=== PATIENT | male | born 1960 | race Caucasian/White ===

== ENCOUNTER 2018-07-27 12:53 | Observation (INO) ==
--- NOTE | 2018-07-27 13:57 | Emergency Department Note ---
Disposition Clinical Impression: Ascites Qualifiers: Ascites type: other type Qualified Code(s): R18.8 - Other ascites Disposition: Admitted As Inpatient Condition: Good Referrals: Mariano Quintero MD [Primary Care Provider] - Forms: Work/School Release, ED Satisfaction Letter Time of Disposition: 15:08 General Adult HPI - General Chief complaint: ED Abdominal Pain Stated complaint: abd swelling Time Seen by Provider: 07/27/18 13:29 Nursing Notes Reviewed: Yes Vital Signs Reviewed: Yes - History of Present Illness HPI Narrative: 57 year old male presents for belly swelling. Patient states he's gained 5 pounds overnight and 10 pounds in a week. Patient had same symptoms in March and needed a paracentesis. Patient has a history of nonalcoholic cirrhosis. Denies fluid retention elsewhere. Reports shortness of breath with exertion and decreased stamina. Denies fever/chills, leg swelling, chest pain, abdominal pain, hematuria, cough, hemoptysis, bloody stools, diarrhea/constipation. Reports medical history of nonalcoholic cirrhosis, kidney disease, A-fib, CHF. Pain Scale: 2 - Related Data Home Medications Medication Instructions Recorded Confirmed Allopurinol [Zyloprim 300 MG] 600 mg PO DAILY 05/28/16 04/09/18 Buspirone HCl [Buspar] 15 mg PO BID 05/28/16 04/09/18 Ferrous Sulfate 325 mg PO DAILY 05/28/16 04/09/18 Metoprolol Tartrate [Lopressor] 50 mg PO BID 05/28/16 04/09/18 Paroxetine HCl [Paroxetine] 40 mg PO DAILY 05/28/16 04/09/18 Potassium Chloride [K-Tab ER] 20 meq PO BID 05/28/16 04/09/18 Simvastatin [Zocor] 40 mg PO QAM 05/28/16 04/09/18 Magnesium Oxide [Mag-Ox] 400 mg PO DAILY 08/29/16 04/09/18 Cholecalciferol (Vitamin D3) 2,000 unit PO DAILY 07/14/17 04/09/18 [Vitamin D3] Warfarin [Coumadin] 2 mg PO DAILY 04/09/18 04/09/18 Previous Rx's Medication Instructions Recorded Digoxin [Lanoxin] 0.125 mg PO DAILY #30 tab 05/06/17 Isosorbide MONOnitrate (24 HR) 30 mg PO DAILY #30 tab.er.24h 05/06/17 [Imdur] Bumetanide [Bumex] 3 mg PO BIDDIURETIC #60 tablet 04/14/18 Allergies Allergy/AdvReac Type Severity Reaction Status Date / Time No Known Allergies Allergy Verified 07/27/18 13:08 Constitutional: Denies: fever, chills Eyes: Denies: eye pain, eye discharge ENT ED: Denies: ear pain, throat pain Cardiovascular: Denies: chest pain, palpitations Respiratory: Denies: cough, dyspnea Gastrointestinal: Denies: abdominal pain, nausea Genitourinary: Denies: urgency, dysuria Musculoskeletal: Denies: back pain, neck pain Integumentary: Denies: rash, abrasion Neurological: Denies: headache, weakness Past Medical History - Past Medical History Medical history: Reports: diabetes, hypertension, renal disease Surgical history: Reports: non-contributory, other Psychiatric history: Reports: anxiety, depression - Social History Smoking Status: Never smoker Smokeless Tobacco Status: No Alcohol use: Reports: none Drug use: Reports: none Physical Exam - General General appearance: alert, in no apparent distress - Head Head exam: atraumatic, normocephalic - Eye Eye exam: Present: PERRL, EOMI - ENT ENT exam: normal oropharynx, mucous membranes dry - Neck Neck exam: Present: normal inspection - Chest Chest inspection: Present: normal inspection, symmetric chest wall rise - Respiratory Respiratory exam: Present: normal lung sounds bilaterally. Absent: respiratory distress - Cardiovascular Cardiovascular exam: Present: regular rate, normal rhythm - Abdominal Exam Abdominal exam: Present: Non-Tender, distention, normal bowel sounds, ascites. Absent: soft (firm and distended ), guarding, rebound, rigidity - Extremities Exam Extremities exam: Present: pedal edema (mild pitting edema 1+ bilaterally ). Absent: tenderness, joint swelling - Neurological Exam Neurological exam: Present: alert, oriented X3 - Psychiatric Psychiatric exam: Present: normal affect, normal mood - Skin Skin exam: Present: warm, dry, intact, normal color Course Course Narrative: 57 year old male with history of cirrhosis, kidney disease, Afib, and CHF presents for abdominal swelling for 1 week. Patient had same symptoms 4 months ago and needed paracentesis. Patient is alert and oriented and hemodynamically stable. On exam, abdomen is large and distended. There are normal bowel sounds and no tenderness to palpation. There is mild 1+ pitting edema of lower extremities. Heart is irregularly irregular. Lungs are clear with good airflow. Will check labwork and consult IR for paracentesis. - Reevaluation(s) Reevaluation #1: CBC and BMP are unremarkable. Albumin is normal. INR is therapeutic. Point of care bedside ultrasound shows ascites. IR nurse states that since INR is 2.4, cannot do paracentesis. States INR has to be below 2.0. Paracentesis will be scheduled for tomorrow. Time: 14:57 Vital Signs Temperature 98.4 F 07/27/18 13:06 Pulse Rate 50 07/27/18 13:06 Respiratory Rate 18 07/27/18 13:06 Blood Pressure 132/81 07/27/18 13:06 O2 Sat by Pulse Oximetry 96 07/27/18 13:06 Temperature 98.4 F 07/27/18 13:06 Pulse Rate 49 07/27/18 13:38 Respiratory Rate 18 07/27/18 13:38 Blood Pressure 129/84 07/27/18 13:38 O2 Sat by Pulse Oximetry 98 07/27/18 13:38 Oxygen Delivery Oxygen Delivery Room Air Medical Decision Making - Lab Data Lab results reviewed: Yes I reviewed the patient's lab results. - EKG Data EKG #1 EKG attestation: Yes I reviewed and interpreted this EKG. EKG results narrative: EKG 07/27/18 14:03. Atrial fibrillation. Heart rate 49. No ST segment elevation or depression. No significant change from prior EKG 04/09/18.
--- NOTE | 2018-07-27 14:16 | Emergency Department Note ---
Disposition Clinical Impression: Ascites Qualifiers: Ascites type: other type Qualified Code(s): R18.8 - Other ascites Disposition: Home, Self-Care Condition: Good Instructions: Ascites (ED) Reasons to Return/Additional Instructions: Please followup with PCP in next 3-5 days. Please return to ED if severely worsening symptoms such as shortness of breath, increased weight gain, or vomiting blood. Referrals: Mariano Quintero MD [Primary Care Provider] - Forms: ED Satisfaction Letter, Work/School Release General Adult HPI - General Chief complaint: ED Abdominal Pain Stated complaint: abd swelling Time Seen by Provider: 07/27/18 13:29 Nursing Notes Reviewed: Yes Vital Signs Reviewed: Yes - History of Present Illness Pain Scale: 2 - Related Data Home Medications Medication Instructions Recorded Confirmed Allopurinol [Zyloprim 300 MG] 600 mg PO DAILY 05/28/16 04/09/18 Buspirone HCl [Buspar] 15 mg PO BID 05/28/16 04/09/18 Ferrous Sulfate 325 mg PO DAILY 05/28/16 04/09/18 Metoprolol Tartrate [Lopressor] 50 mg PO BID 05/28/16 04/09/18 Paroxetine HCl [Paroxetine] 40 mg PO DAILY 05/28/16 04/09/18 Potassium Chloride [K-Tab ER] 20 meq PO BID 05/28/16 04/09/18 Simvastatin [Zocor] 40 mg PO QAM 05/28/16 04/09/18 Magnesium Oxide [Mag-Ox] 400 mg PO DAILY 08/29/16 04/09/18 Cholecalciferol (Vitamin D3) 2,000 unit PO DAILY 07/14/17 04/09/18 [Vitamin D3] Warfarin [Coumadin] 2 mg PO DAILY 04/09/18 04/09/18 Previous Rx's Medication Instructions Recorded Digoxin [Lanoxin] 0.125 mg PO DAILY #30 tab 05/06/17 Isosorbide MONOnitrate (24 HR) 30 mg PO DAILY #30 tab.er.24h 05/06/17 [Imdur] Bumetanide [Bumex] 3 mg PO BIDDIURETIC #60 tablet 04/14/18 Allergies Allergy/AdvReac Type Severity Reaction Status Date / Time No Known Allergies Allergy Verified 07/27/18 13:08 Constitutional: Denies: fever, chills Eyes: Denies: eye pain, eye discharge ENT ED: Denies: ear pain, throat pain Cardiovascular: Denies: chest pain, palpitations Respiratory: Denies: cough, dyspnea Gastrointestinal: Denies: abdominal pain, nausea Genitourinary: Denies: urgency, dysuria Musculoskeletal: Denies: back pain, neck pain Integumentary: Denies: rash, abrasion Neurological: Denies: headache, weakness Past Medical History - Past Medical History Medical history: Reports: diabetes, hypertension, renal disease Surgical history: Reports: non-contributory, other Psychiatric history: Reports: anxiety, depression - Social History Smoking Status: Never smoker Smokeless Tobacco Status: No Alcohol use: Reports: none Drug use: Reports: none Physical Exam - General General appearance: alert, in no apparent distress Course Vital Signs Temperature 98.4 F 07/27/18 13:06 Pulse Rate 50 07/27/18 13:06 Respiratory Rate 18 07/27/18 13:06 Blood Pressure 132/81 07/27/18 13:06 O2 Sat by Pulse Oximetry 96 07/27/18 13:06 Temperature 98.4 F 07/27/18 13:06 Pulse Rate 49 07/27/18 13:38 Respiratory Rate 18 07/27/18 13:38 Blood Pressure 129/84 07/27/18 13:38 O2 Sat by Pulse Oximetry 98 07/27/18 13:38 Oxygen Delivery Oxygen Delivery Room Air Medical Decision Making - MDM Narrative Medical decision making narrative: 1506 hrs. INR is 2.4. Iris is a high speed below 2 below before they can notes were in a bring him into the hospital except to the hospitalists and then once that gets down they can go ahead and tap and patient's in agreement with plan. - Lab Data Result diagrams: 07/27/18 14:00 07/27/18 14:00 Lab Results 07/27/18 07/27/18 07/27/18 Range/Units 14:00 14:00 14:00 WBC 8.0 (4.3-11.1) K/mcL RBC 5.04 (4.19-5.50) M/mcL Hgb 12.3 L (12.9-16.9) g/dL Hct 40.8 (37.5-50.1) % MCV 81.0 L (83.0-100.0) fL MCH 24.4 L (28.0-33.3) pg MCHC 30.1 L (31.6-35.5) g/dL RDW 19.2 H (11.5-14.5) % Plt Count 162 (140-400) K/mcL MPV 10.8 (9.4-12.4) fL Immature Gran % 0.4 (0-4) % Seg Neutrophils % 73.2 % Lymphocytes % 16.1 % Monocytes % 8.9 % Eosinophils % 1.2 % Basophils % 0.2 % Neutrophils # 5.9 (1.6-8.9) K/mcL Lymphocytes # 1.3 (0.6-4.6) K/mcL Monocytes # 0.7 (0.0-1.3) K/mcL Eosinophils # 0.1 (0.0-0.6) K/mcL Basophils # 0.0 (0.0-0.2) K/mcL Immature Plt Fraction 4.7 (1.1-6.1) % PT 27.4 H (9.4-12.1) Seconds INR 2.4 Sodium 141 (136-145) mEq/L Potassium 4.0 (3.5-5.1) mEq/L Chloride 102 (98-107) mEq/L Carbon Dioxide 31 H (23-29) mEq/L BUN 28 H (6-20) mg/dL Creatinine 1.49 H (0.70-1.30) mg/dL Est GFR ( Amer) 59 L (> 60) Est GFR (Non-Af Amer) 49 L (> 60) BUN/Creatinine Ratio 19 (6-26) Glucose 117 H (70-105) mg/dL Calculated Osmolality 299 (280-300) Calcium 9.4 (8.6-10.3) mg/dL Albumin (3.5-5.7) g/dL 07/27/18 Range/Units 14:00 WBC (4.3-11.1) K/mcL RBC (4.19-5.50) M/mcL Hgb (12.9-16.9) g/dL Hct (37.5-50.1) % MCV (83.0-100.0) fL MCH (28.0-33.3) pg MCHC (31.6-35.5) g/dL RDW (11.5-14.5) % Plt Count (140-400) K/mcL MPV (9.4-12.4) fL Immature Gran % (0-4) % Seg Neutrophils % % Lymphocytes % % Monocytes % % Eosinophils % % Basophils % % Neutrophils # (1.6-8.9) K/mcL Lymphocytes # (0.6-4.6) K/mcL Monocytes # (0.0-1.3) K/mcL Eosinophils # (0.0-0.6) K/mcL Basophils # (0.0-0.2) K/mcL Immature Plt Fraction (1.1-6.1) % PT (9.4-12.1) Seconds INR Sodium (136-145) mEq/L Potassium (3.5-5.1) mEq/L Chloride (98-107) mEq/L Carbon Dioxide (23-29) mEq/L BUN (6-20) mg/dL Creatinine (0.70-1.30) mg/dL Est GFR ( Amer) (> 60) Est GFR (Non-Af Amer) (> 60) BUN/Creatinine Ratio (6-26) Glucose (70-105) mg/dL Calculated Osmolality (280-300) Calcium (8.6-10.3) mg/dL Albumin 4.0 (3.5-5.7) g/dL Attestation Statement - Attestation Attestation: This documentation is done with the assistance of Dragon dictation. Despite efforts made to ensure accuracy, there may be inaccuracies in interpreter or spelling and typographical errors. I examined this patient and my medical decision-making was reviewed with the Resident Physician. I agree with the documented findings, disposition and treatment plan as described except to the extent set forth below. Patient seen and evaluated on arrival by Dr. Barnett and myself, I agree with her evaluation and management plan, I supervised the care the patient's stay. Patient presents today with the need for paracentesis. History of cirrhosis. So his abdomen is getting larger pain 5-10 pounds her last 2 days. No fevers or chills no difficulty urinating no new symptoms. He has had a paracentesis done here. We went ahead and talked to IR they said go ahead and get a CBC and INR in him and Alyssa performed procedure. He is in agreement with plan if all goes well I think he can be discharged home after this. He is in agreement.
[2018-07-27 14:32] LABS: Hemoglobin 12.3 g/dL (12.9-16.9); Immature Granulocytes % 0.4 % (0-4)
[2018-07-27 14:33] LABS: Basophils % 0.2 %; Eosinophils # 0.1 K/mcL (0.0-0.6); Eosinophils % 1.2 %; Hematocrit 40.8 % (37.5-50.1); Immature Platelets 4.7 % (1.1-6.1); Lymphocytes # 1.3 K/mcL (0.6-4.6); Lymphocytes % 16.1 %; Mean Corpuscular HGB Conc 30.1 g/dL (31.6-35.5); Mean Corpuscular Hemoglobin 24.4 pg (28.0-33.3); Mean Platelet Volume 10.8 fL (9.4-12.4); Monocytes # 0.7 K/mcL (0.0-1.3); Monocytes % 8.9 %; Neutrophils # 5.9 K/mcL (1.6-8.9); Platelet Count 162 K/mcL (140-400); Red Blood Count 5.04 M/mcL (4.19-5.50); Red Cell Distribution Width 19.2 % (11.5-14.5); Segmented Neutrophils % 73.2 %
[2018-07-27 14:34] LABS: INR 2.4; Prothrombin Time 27.4 Seconds (9.4-12.1)
[2018-07-27 14:50] LABS: Calcium 9.4 mg/dL (8.6-10.3)
[2018-07-27] MEDS ORDERED: Naloxone 0.4 MG/ML INJ IVP PRN (15:16)
--- NOTE | 2018-07-27 15:29 | Internal Med History&Physical ---
Date of Encounter: 07/27/18 Time of Encounter: 15:24 Internal Medicine - H&P: HPI Chief complaint: abdomianl distension Admitted From: Home Plans for Post Hospital Care: Home History of present illness: Mr. Amanda is a 57 year old male with history of [place], atrial fibrillation on Coumadin, CKD 3, diabetes and heart failure preserved ejection fraction presented to the emergency department with worsening abdominal distention. As per patient his abdomen has been more distended for the past 1 week. He reports a 10 pound weight gain in this past week. He has history of nonalcoholic cirrhosis which causes him to have ascites. He was last seen in May 2018 and underwent paracentesis where 5.2 L of fluid was removed. He cannot recall alleviating or aggravating factors however he does report that he has compliant with his medications and fluid restriction. He denies fever, chills, confusion, loss of consciousness, syncope, chest pain, shortness of breath, palpitations, abdominal pain, difficulty urinating, lower extremity edema, prolonged immobilization or calf tenderness. While in the ED he was found to have INR of 2.4, large ascites, IR was consulted who recommended admission to hold the Coumadin until INR is less than 2 for paracentesis in the morning. Past Med Surg Social Fam HX - Past Medical History Medical history: diabetes, hypertension, renal disease Additional medical history: SLEEP APNEA Psychiatric history: anxiety, depression - Past Surgical History Surgical History: non-contributory, other Additional surgical history: Heart cath 2014 - Social History Smoking Status: Never smoker Smokeless Tobacco Status: No Alcohol use: none Drug use: none - Family History Sister Family Member Ethnicity: Non- Living Status: Hx Family Cardiac Disorders: Yes Hx Family Respiratory Disorders: No Hx Family Cancer: No Hx Family GI Disorders: No Hx Family Endocrine Disorder: No Hx Family Neuromuscular Disorders: No Hx Family Neurologic Disorders: No Hx Family HEENT Disorders: No Hx Family Autoimmune Disorders: No Mother Family Member Ethnicity: Non- Living Status: Still Living Hx Family Cancer: Yes (breast cancer) Father Family Member Ethnicity: Non- Living Status: Hx Family Cardiac Disorders: Yes Hx Family Respiratory Disorders: No Hx Family Cancer: No Hx Family GI Disorders: No Hx Family Endocrine Disorder: Yes (DM) Hx Family Neuromuscular Disorders: No Hx Family Neurologic Disorders: Yes (Alzheimers) Hx Family HEENT Disorders: No Hx Family Autoimmune Disorders: No Internal Medicine - H&P: Meds Allopurinol [Zyloprim 300 MG] 600 mg PO DAILY 05/28/16 [History] Buspirone HCl [Buspar] 15 mg PO BID 05/28/16 [History] Metoprolol Tartrate [Lopressor] 50 mg PO BID 05/28/16 [History] Potassium Chloride [K-Tab ER] 20 meq PO BID 05/28/16 [History] Simvastatin [Zocor] 40 mg PO QAM 05/28/16 [History] Magnesium Oxide [Mag-Ox] 400 mg PO DAILY 08/29/16 [History] Digoxin [Lanoxin] 0.125 mg PO DAILY #30 tab 05/06/17 [Rx] Isosorbide MONOnitrate (24 HR) [Imdur] 30 mg PO DAILY #30 tab.er.24h 05/06/17 [Rx] Cholecalciferol (Vitamin D3) [Vitamin D3] 2,000 unit PO DAILY 07/14/17 [History] Warfarin [Coumadin] 2 mg PO DAILY 04/09/18 [History] Bumetanide [Bumex] 3 mg PO BID 07/27/18 [History] Ferrous Sulfate [Iron] 325 mg PO DAILY 07/27/18 [History] PARoxetine HCl [Paroxetine HCl] 40 mg PO DAILY 07/27/18 [History] Warfarin Sodium 4 mg PO MOTUTHFR 07/27/18 [History] Allergy/AdvReac Type Severity Reaction Status Date / Time No Known Allergies Allergy Verified 07/27/18 13:08 All Systems PM: review of systems was performed and is negative for pertinent findings except as documented above in the HPI. - Constitutional Vitals: Temp Pulse Resp BP Pulse Ox 98.4 F 54 16 129/91 97 07/27/18 13:06 07/27/18 15:16 07/27/18 15:16 07/27/18 15:16 07/27/18 15:16 Exam: General: Patient is alert, oriented, no acute distress, obese Head: atraumatic, normocephalic, Eye: normal appearance, PERRL, no scleral icterus, no conjunctival injection ENT: mucous membranes moist, normal external ear exam Neck: normal inspection, trachea midline, full ROM, no carotid bruits Chest: normal inspection, symmetric chest rise Respiratory: Good respiratory effort. Bilateral breath sounds are clear without wheezing, crackles, or rhonchi. Cardiovascular: Irregular s1 and s2 No clicks, rubs, gallops, or murmors. Abdomen: Bowel sounds present normoactive x-4 quadrants. Abdomen is soft, distended, positive for fluid shift and ascites, no rebound tenderness musculoskeletal: Spontaneously moving all extremities. no edema, no calf tenderness Skin: warm, dry, intact. Dark discoloration of lower extremities below the knee which is chronic Neuro: Alert and oriented x4. Sensation light touch intact. Cranial nerves 2- 12 is intact. Not aphasic, gait is steady, rapid hand movements intact, [id number] intact, Psych: Patient's affect is normal Internal Med - H&P Results - Labs CBC & Chem 7: 07/27/18 14:00 07/27/18 14:00 Labs: Short CBC 07/27/18 Range/Units 14:00 WBC 8.0 (4.3-11.1) K/mcL Hgb 12.3 L (12.9-16.9) g/dL Hct 40.8 (37.5-50.1) % Plt Count 162 (140-400) K/mcL Neutrophils # 5.9 (1.6-8.9) K/mcL BMP 07/27/18 14:00 Sodium 141 Potassium 4.0 Chloride 102 Carbon Dioxide 31 H BUN 28 H Creatinine 1.49 H Glucose 117 H Calcium 9.4 Liver Function 07/27/18 Range/Units 14:00 Albumin 4.0 (3.5-5.7) g/dL - EKG Data -: EKG Interpreted by Myself (Afib with slow ventricular respnse, low voltage, old anterior infarct ) - EKG Data Prior EKG available for review: yes When compared to previous EKG: there is no significant change - Assessment and plan (1) Ascites Current Visit: Yes Status: Acute Assessment and plan: Secondary to nonalcoholic cirrhosis Has no tenderness, rebound, leukocytosis or feverSBP unlikely IR was consulted for paracentesis in the a.m. Patient is in agreement to hold Coumadin tonight as IR desires the INR to be less than 2- patient understands risks and benefits of holding anticoagulation and he agrees Follow INR in the morning Follow ascites fluid analysis LFTs stat utox continue diuretics Qualifiers: Ascites type: other type Qualified Code(s): R18.8 - Other ascites (2) Atrial fibrillation with slow ventricular response Current Visit: Yes Status: Acute Assessment and plan: on digoxin - next dose in AM - consider holding if he remains bradycardic will hold BB as the HR is <50 coumadin on hold for IR guided paracentesis in the AM ( patient in agreement) cardiac monitoring atropine at bedside for symptomatic HR <35 (3) Chronic kidney disease, stage 3 Current Visit: No Status: Acute Assessment and plan: Chronic CKD 3 Creatinine at baseline 1.49 We will continue home medications Follow BMP in the morning (4) Anemia Current Visit: No Status: Acute Assessment and plan: Chronic anemia Hemoglobin at baseline Follow CBC in the morning Qualifiers: Anemia type: unspecified type Qualified Code(s): D64.9 - Anemia, unspecified (5) Chronic diastolic (congestive) heart failure Current Visit: No Status: Chronic Assessment and plan: We will continue home medications if not contraindicated Currently not an exacerbation (6) Obesity (BMI 30-39.9) Current Visit: No Status: Chronic Assessment and plan: Was counseled Consider nutrition consult BMI 37.4 (7) DVT prophylaxis Current Visit: No Status: Acute Assessment and plan: On Coumadin with therapeutic INR - Time Spent With Patient Total time spent is greater than 50% in coordination of care (as documented) at patient's floor/unit and/or counseling patient:
[2018-07-27 16:15] LABS: Albumin 4.1 g/dL (3.5-5.7); Albumin/Globulin Ratio 1.9 (1.1-2.2); Bilirubin,Direct 0.5 mg/dL (0.0-0.2); Bilirubin,Indirect 1.1 mg/dL (0.0-1.2); Bilirubin,Total 1.6 mg/dL (0.3-1.0); Globulin 2.2 g/dL (2.4-3.5); Total Protein 6.3 g/dL (6.4-8.9)
[2018-07-27] MEDS ORDERED: *HR* Atropine Sulfate 1 MG/10 ML SYRINGE IVP PRN (16:18)
[2018-07-27] MEDS: Bumetanide 1 MG TABLET PO SCH (18:50)
[2018-07-27 21:40] LABS: Amphetamine Screen,Urine Negative ng/mL (Cutoff=1000); Barbiturate Screen,Urine Negative ng/mL (Cutoff=200); Benzodiazepines Screen,Urine Negative ng/mL (Cutoff=200); Cannabinoid Screen,Urine Negative ng/mL (Cutoff = 50); Cocaine Screen,Urine Negative ng/mL (Cutoff= 300); Opiate Screen,Urine Negative ng/mL (Cutoff=300); Phencyclidine Screen,Urine Negative ng/mL (Cutoff=25)
[2018-07-27 21:42] LABS: Bilirubin,Urine Negative (Negative); Blood,Urine Negative (Negative); Clarity,Urine Clear (Clear); Color,Urine Yellow (Yellow); Glucose,Urine (UA) Normal (Normal); Ketones,Urine Negative (Negative); Leukocyte Esterase,Urine Negative (Negative); Nitrite,Urine Negative (Negative); PH,Urine 6.5 pH Units (5.0-8.0); Protein,Urine Negative (Neg-Trace); Specific Gravity,Urine 1.012 (1.010-1.025); Urobilinogen,Urine Normal (Normal)
[2018-07-28 06:41] LABS: Basophils % 0.4 %; Eosinophils # 0.1 K/mcL (0.0-0.6); Hematocrit 38.8 % (37.5-50.1); Hemoglobin 11.7 g/dL (12.9-16.9); Immature Granulocytes % 0.4 % (0-4); Lymphocytes % 21.2 %; Mean Corpuscular HGB Conc 30.2 g/dL (31.6-35.5); Mean Corpuscular Hemoglobin 23.9 pg (28.0-33.3); Mean Corpuscular Volume 79.3 fL (83.0-100.0); Monocytes # 0.7 K/mcL (0.0-1.3); Monocytes % 9.5 %; Neutrophils # 4.9 K/mcL (1.6-8.9); Platelet Count 166 K/mcL (140-400); Red Blood Count 4.89 M/mcL (4.19-5.50); Segmented Neutrophils % 67.5 %
[2018-07-28 06:43] LABS: Lymphocytes # 1.6 K/mcL (0.6-4.6)
[2018-07-28 06:45] LABS: INR 2.1; Prothrombin Time 24.2 Seconds (9.4-12.1)
[2018-07-28 06:46] LABS: Estimated Average Glucose 157 mg/dl; Hemoglobin A1C 7.1 %
[2018-07-28 06:57] LABS: BUN/Creatinine Ratio 20 (6-26); Blood Urea Nitrogen 26 mg/dL (6-20); Carbon Dioxide 27 mEq/L (23-29); Chloride 103 mEq/L (98-107); Chol/HDL Ratio 3.8 (0-4.9); Cholesterol 76 mg/dL (< 200); Glucose 97 mg/dL (70-105); HDL Cholesterol 20 mg/dL (40-59); LDL Cholesterol,Calculated 33 mg/dL (0-99); Osmolality,Calculated 295 (280-300); Potassium 3.5 mEq/L (3.5-5.1); Sodium 140 mEq/L (136-145); Triglycerides 115 mg/dL (< 150); eGFR For Non-African Americans 57 (> 60)
[2018-07-28] MEDS: Bumetanide 1 MG TABLET PO SCH (07:20)
[2018-07-28] MEDS: Isosorbide MONOnitrate (24 HR) 30 MG TAB.ER.24H PO SCH (07:21)
[2018-07-28] MEDS: Magnesium Oxide 400 MG TABLET PO SCH (07:21)
[2018-07-28] MEDS: Cholecalciferol (D-3) 1,000 UNIT TABLET PO SCH (07:21)
--- NOTE | 2018-07-28 08:28 | Internal Med Progress Note ---
Hospitalist Progress Note - Encounter Date of Encounter: 07/28/18 Time of Encounter: 08:22 - Subjective Interval History: Patient with history of Coffman follows up in [place] had paracenteses about 5 Lremoved march also history of atrial fibrillation on Coumadin, CK D, diabetes, history of diastolic heart failure, hypertension and obstructive sleep apnea patient was admitted with abdominal pain and abdominal distention for about a week with some exertional shortness of breath evaluation shows large ascites patient is scheduled for paracentesis but inr was high at 2.4 Coumadin is held this morning is 2.1 awaiting IR to decide about proceeding with the paracentesis today patient heart rate is in the 40s atrial fibrillation held digoxin is being held probably discontinue it for now - Exam Vitals: Temp Pulse Resp BP Pulse Ox 97.5 F L 49 11 107/62 97 07/28/18 05:05 07/28/18 05:05 07/28/18 05:05 07/28/18 05:05 07/28/18 05:05 Exam: General: Patient is alert, oriented, no acute distress, obese Head: atraumatic, normocephalic, Eye: normal appearance, PERRL, no scleral icterus, no conjunctival injection ENT: mucous membranes moist, normal external ear exam Neck: normal inspection, trachea midline, full ROM, no carotid bruits Chest: normal inspection, symmetric chest rise Respiratory: Good respiratory effort. Bilateral breath sounds are clear without wheezing, crackles, or rhonchi. Cardiovascular: Irregular s1 and s2 No clicks, rubs, gallops, or murmors. Abdomen: Bowel sounds present normoactive x-4 quadrants. Abdomen is soft, distended, positive for fluid shift and ascites, no rebound tenderness musculoskeletal: Spontaneously moving all extremities. no edema, no calf tenderness Skin: warm, dry, intact. Dark discoloration of lower extremities below the knee which is chronic Neuro: Alert and oriented x4. Sensation light touch intact. Cranial nerves 2- 12 is intact. Not aphasic, gait is steady, rapid hand movements intact, [id number] intact, Psych: Patient's affect is normal - Assessment and Plan (1) Obesity Current Visit: No Status: Chronic Assessment and Plan: Chronic due to excess caloric intake (2) HTN (hypertension) Current Visit: No Status: Chronic Assessment and Plan: Chronic and well controlled (3) Diabetes 1.5, managed as type 2 Current Visit: No Status: Chronic Assessment and Plan: Continue sliding scale (4) Chronic kidney disease, stage 3 Current Visit: No Status: Chronic Assessment and Plan: Chronic creatinine has improved from 1.4-1.3 (5) Ascites Current Visit: Yes Status: Acute Assessment and Plan: Patient with history of Coffman now presenting with a large ascites has been consul t taped for paracentesis (6) Atrial fibrillation with slow ventricular response Current Visit: Yes Status: Acute Assessment and Plan: Active fibrillation with slow ventricular response or discontinue digoxin and check dig level and mildly dig toxic - Time Spent with Patient Total time spent is greater than 50% in coordination of care (as documented) at patient's floor/unit and/or counseling patient: Internal Medicine: Result - Labs CBC & Chem 7: 07/28/18 06:11 07/28/18 06:11 Labs: Short CBC 07/27/18 07/28/18 Range/Units 14:00 06:11 WBC 8.0 7.3 (4.3-11.1) K/mcL Hgb 12.3 L 11.7 L (12.9-16.9) g/dL Hct 40.8 38.8 (37.5-50.1) % Plt Count 162 166 (140-400) K/mcL Neutrophils # 5.9 4.9 (1.6-8.9) K/mcL BMP 07/27/18 07/28/18 14:00 06:11 Sodium 141 140 Potassium 4.0 3.5 Chloride 102 103 Carbon Dioxide 31 H 27 BUN 28 H 26 H Creatinine 1.49 H 1.30 Glucose 117 H 97 Calcium 9.4 9.0 Liver Function 07/27/18 07/27/18 Range/Units 14:00 15:42 Total Bilirubin 1.6 H (0.3-1.0) mg/dL Direct Bilirubin 0.5 H (0.0-0.2) mg/dL AST 19 (13-39) Units/L ALT 13 (7-52) Units/L Alkaline Phosphatase 230 H (34-104) Units/L Albumin 4.0 4.1 (3.5-5.7) g/dL Urine 07/27/18 Range/Units 21:20 Urine Color Yellow (Yellow) Urine Clarity Clear (Clear) Urine pH 6.5 (5.0-8.0) pH Units Ur Specific [place] 1.012 (1.010-1.025) Urine Protein Negative (Neg-Trace) mg/dL Urine Glucose (UA) Normal (Normal) mg/dL - ABG Interpretation ABG results: PT/INR, D-dimer PT 24.2 Seconds (9.4-12.1) H 07/28/18 06:11 Consult Discharge Plan - Plan Referrals: Mariano Quintero MD [Primary Care Provider] - ___ (1) Obesity Qualifiers: Obesity type: unspecified obesity type Qualified Code(s): E66.01 - Morbid (severe) obesity due to excess calories (2) HTN (hypertension) Qualifiers: Hypertension type: essential hypertension Qualified Code(s): I10 - Essential (primary) hypertension (5) Ascites Qualifiers: Ascites type: other type Qualified Code(s): R18.8 - Other ascites
[2018-07-28] MEDS ORDERED: *HR* Digoxin 0.125 MG TABLET PO SCH (09:00)
--- NOTE | 2018-07-28 13:49 | Cardiology Consult Note ---
Addendum entered and electronically signed by Ady Vazquez DO 07/28/18 14:48: I have personally performed a face to face evaluation on this patient. I have reviewed and agree with the care plan. History and Exam by me shows: Patient independently seen and examined. Describes a 5 pound weight gain over the last 24 hours. Reports worsening abdominal distention. Mild lower extremity edema noted, breath sounds are clear. Diagnosed with cirrhosis earlier this year, following with hepatology at [facility]. Scheduled for endoscopy in August. Cardiac issues include chronic diastolic heart failure, chronic atrial fibrillation. Impressions: 1. Clinically, awake and appears largely secondary to increasing abdominal distention and likely abdominal ascites. 2. Cirrhosis. 3. Chronic diastolic heart failure. Mild lower extremity edema noted on e xamination. Breast sounds otherwise clear. 4. Chronic atrial fibrillation, heart rate 50s. Recommendations: 1. Recommend GI evaluation. Consider Aldactone/loop diuretic combination. Paracentesis planned per reports. 2. Hemoglobin stable. No known prior seizures related to cirrhosis. Endoscopy scheduled for August. If issues develop, may need to reconsider anticoagulation in the future. This was discussed with the patient. 3. Continue to monitor heart rate. Okay to hold digoxin. Will likely resume low-dose beta collin tomorrow. Her heart rate for now. 4. CHF precautions. Thanks, Ady Vazquez DO, [facility] Original Note: Date of Encounter: 07/28/18 Time of Encounter: 13:46 Assessment and Plan (1) Acute diastolic (congestive) heart failure Current Visit: Yes Status: Acute Hx of chronic diastolic CHF. BNP 658. Presented with worsening dyspnea, 10lb weight gain in the past week, abdominal distention and mild BLE edema. Obtain CXR. TTE 01/2018 EF 60-65%. Appears symptoms are mostly secondary to his ascites. Currently on IV Bumex 3mg BID. Recommend considering Lasix and aldactone as alternative diuretics and GI consult given recurrent ascites warranting paracentesis. Recommend strict I/Os, Na and fluid restriction. Large amount of ascites--plan is for paracentesis when INR <2.0. Will discuss and review with Dr. Vazquez. (2) Ascites Current Visit: Yes Status: Acute Hx of JOLLEY and ascites. Large amount of ascites currently. Plan for paracentesis when INR <2. Management per primary team. Recommend consider GI consult. Qualifiers: Ascites type: other type Qualified Code(s): R18.8 - Other ascites (3) Atrial fibrillation with slow ventricular response Current Visit: Yes Status: Acute Known hx of A-Fib anticoagulated on Coumadin. INR 2.1. Held for paracentesis. On Digoxin 125mcg daily and Lopressor 50mg BID. Both currently on hold due to HR 40s-50s at bedside. Pt denies dizziness, lightheadedness or syncope. States his HR is typically 50s. Continue telemetry. Discussion w patient/family: The assessment and plan as outlined above was discussed with the patient and/or family members who expressed understanding and agreement. All questions were ans wered. Thank you for involving us in the care of your patient. Please call with any questions. I will discuss all the above with Dr. Vazquez and make changes as necessary. History of Present Illness Consult date: 07/28/18 Consult reason: CHF Chief complaint: dyspnea, weight gain, abdominal distention History of present illness: Mr. Amanda is a 57 year old male with PMH of JOLLEY, A-Fib on Coumadin, CKD 3, DM and diastolic CHF that presented to the ED with worsening abdominal distention, 10 lb weight gain in 1 week, and dyspnea. Hx of nonalcoholic cirrhosis which causes him to have ascites. Underwent paracentesis 03/2018 where 5.2 L of fluid was removed. He cannot recall alleviating or aggravating factors however he does report that he has compliant with his medications and fluid restriction. In the the ED he was found to have INR of 2.4, large ascites, IR was consulted who recommended admission to hold the Coumadin until INR is less than 2 for paracentesis. INR 2.1 today. Cardiology consulted for CHF. HR 40s-50s, A-Fib on Digoxin which is currently on hold. Pt denies dizziness, lightheadedness or syncope. Prior CV testing: TTE 02/18/2018: LVEF 60-65%. RV was mildly dilated with normal function. Severe biatrial enlargement. No hemodynamically significant valvular disease. IVUS to be RVSP. No pericardial effusion. [facility] 07/22/2013: Left main normal. LAD mid and distal 30% stenosis. Circumflex mid 30% stenosis. RCA proximal and mid 20% stenosis. Past Med Surg Social Fam HX - Past Medical History Medical history: atrial fibrillation, CHF, coronary artery disease, diabetes, hypertension, myocardial infarction, renal disease Additional medical history: SLEEP APNEA Psychiatric history: anxiety, depression - Past Surgical History Surgical History: non-contributory, other Additional surgical history: Heart cath 2014 - Social History Smoking Status: Never smoker Smokeless Tobacco Status: No Alcohol use: none Drug use: none - Family History Sister Family Member Ethnicity: Non- Living Status: Hx Family Cardiac Disorders: Yes Hx Family Respiratory Disorders: No Hx Family Cancer: No Hx Family GI Disorders: No Hx Family Endocrine Disorder: No Hx Family Neuromuscular Disorders: No Hx Family Neurologic Disorders: No Hx Family HEENT Disorders: No Hx Family Autoimmune Disorders: No Mother Family Member Ethnicity: Non- Living Status: Still Living Hx Family Cancer: Yes (breast cancer) Father Family Member Ethnicity: Non- Living Status: Hx Family Cardiac Disorders: Yes Hx Family Respiratory Disorders: No Hx Family Cancer: No Hx Family GI Disorders: No Hx Family Endocrine Disorder: Yes (DM) Hx Family Neuromuscular Disorders: No Hx Family Neurologic Disorders: Yes (Alzheimers) Hx Family HEENT Disorders: No Hx Family Autoimmune Disorders: No Medications and Allergies Allopurinol [Zyloprim 300 MG] 600 mg PO DAILY 05/28/16 [History] Buspirone HCl [Buspar] 15 mg PO BID 05/28/16 [History] Metoprolol Tartrate [Lopressor] 50 mg PO BID 05/28/16 [History] Potassium Chloride [K-Tab ER] 20 meq PO BID 05/28/16 [History] Simvastatin [Zocor] 40 mg PO QAM 05/28/16 [History] Magnesium Oxide [Mag-Ox] 400 mg PO DAILY 08/29/16 [History] Digoxin [Lanoxin] 0.125 mg PO DAILY #30 tab 05/06/17 [Rx] Isosorbide MONOnitrate (24 HR) [Imdur] 30 mg PO DAILY #30 tab.er.24h 05/06/17 [Rx] Cholecalciferol (Vitamin D3) [Vitamin D3] 2,000 unit PO DAILY 07/14/17 [History] Warfarin [Coumadin] 2 mg PO SUWESA 04/09/18 [History] Bumetanide [Bumex] 3 mg PO BID 07/27/18 [History] Ferrous Sulfate [Iron] 325 mg PO DAILY 07/27/18 [History] PARoxetine HCl [Paroxetine HCl] 40 mg PO DAILY 07/27/18 [History] Warfarin Sodium 4 mg PO MOTUTHFR 07/27/18 [History] Allergy/AdvReac Type Severity Reaction Status Date / Time No Known Allergies Allergy Verified 07/27/18 13:08 All Systems Review: The remainder of the systems were reviewed and are negative - Constitutional Constitutional: weight gain - Cardiovascular Cardiovascular: as per HPI, dyspnea at rest, dyspnea on exertion, leg edema - Respiratory Respiratory: dyspnea Physical Examination Vital Signs, Last 4 Hours Temp Pulse Resp BP Pulse Ox 07/28/18 10:05 97.6 F 54 15 128/70 95 Vital Signs Temp Pulse Resp BP Pulse Ox 07/28/18 10:05 97.6 F 54 15 128/70 95 07/28/18 05:05 97.5 F L 49 11 107/62 97 07/27/18 19:18 97.8 F 55 11 126/85 07/27/18 17:14 61 22 130/86 99 07/27/18 16:20 54 18 112/79 96 07/27/18 15:16 54 16 129/91 97 07/27/18 14:30 42 16 123/70 98 Intake and Output 07/27/18 07/28/18 07/28/18 23:59 07:59 15:59 Intake Total 0 / 0 240 / 240 480 / 480 Output Total 0 / 0 Balance 0 / 0 240 / 240 480 / 480 Intake: Oral 0 / 0 240 / 240 480 / 480 Output: Urine 0 / 0 Other: Meal Breakfast Percent of Meal Consumed 50% # Voids 1 3 1 # Bowel Movements 1 General: Conversant, No Apparent Distress HEENT: Atraumatic, Normocephaly, Mucus Membranes Moist Neck: Normal carotid pulses Cardiac: Other (irregularly irregular ) Lungs: Normal Breath Sounds, No Wheeze, Rales, Rhonchi Neuro: Alert and responsive, No focal deficits noted Abdomen: Other (distended) Skin: No rashes noted on visualized skin Musculoskeletal: No Chest Wall Tenderness Extremities: Other (mild BLE edema) Results 07/28/18 06:11 07/28/18 06:11 Lab Results 07/27/18 07/27/18 07/27/18 14:00 14:00 14:00 WBC 8.0 Hgb 12.3 L Hct 40.8 Plt Count 162 INR 2.4 Sodium 141 Potassium 4.0 Chloride 102 Carbon Dioxide 31 H BUN 28 H Creatinine 1.49 H Glucose 117 H Calcium 9.4 Total Bilirubin AST ALT Alkaline Phosphatase B-Natriuretic Peptide 07/27/18 07/28/18 07/28/18 15:42 06:11 06:11 WBC 7.3 Hgb 11.7 L Hct 38.8 Plt Count 166 INR 2.1 Sodium Potassium Chloride Carbon Dioxide BUN Creatinine Glucose Calcium Total Bilirubin 1.6 H AST 19 ALT 13 Alkaline Phosphatase 230 H B-Natriuretic Peptide 07/28/18 07/28/18 06:11 06:11 WBC Hgb Hct Plt Count INR Sodium 140 Potassium 3.5 Chloride 103 Carbon Dioxide 27 BUN 26 H Creatinine 1.30 Glucose 97 Calcium 9.0 Total Bilirubin AST ALT Alkaline Phosphatase B-Natriuretic Peptide 658 H Short CBC 07/28/18 07/27/18 Range/Units 06:11 14:00 WBC 7.3 8.0 (4.3-11.1) K/mcL Hgb 11.7 L 12.3 L (12.9-16.9) g/dL Hct 38.8 40.8 (37.5-50.1) % Plt Count 166 162 (140-400) K/mcL Neutrophils # 4.9 5.9 (1.6-8.9) K/mcL BMP 07/28/18 07/27/18 Range/Units 06:11 14:00 Sodium 140 141 (136-145) mEq/L Potassium 3.5 4.0 (3.5-5.1) mEq/L Chloride 103 102 (98-107) mEq/L Carbon Dioxide 27 31 H (23-29) mEq/L BUN 26 H 28 H (6-20) mg/dL Creatinine 1.30 1.49 H (0.70-1.30) mg/dL Glucose 97 117 H (70-105) mg/dL Calcium 9.0 9.4 (8.6-10.3) mg/dL Liver Function 07/27/18 07/27/18 Range/Units 15:42 14:00 Total Bilirubin 1.6 H (0.3-1.0) mg/dL Direct Bilirubin 0.5 H (0.0-0.2) mg/dL AST 19 (13-39) Units/L ALT 13 (7-52) Units/L Alkaline Phosphatase 230 H (34-104) Units/L Albumin 4.1 4.0 (3.5-5.7) g/dL Urine 07/27/18 Range/Units 21:20 Urine Color Yellow (Yellow) Urine Clarity Clear (Clear) Urine pH 6.5 (5.0-8.0) pH Units Ur Specific [place] 1.012 (1.010-1.025) Urine Protein Negative (Neg-Trace) mg/dL Urine Glucose (UA) Normal (Normal) mg/dL Active Medications Allopurinol (Zyloprim) 600 mg PO DAILY [facility] Stop: 01/27/19 09:01 Last Admin: 07/28/18 07:22 Dose: 600 mg Atropine Sulfate (Atropine) 0.5 mg IVP ONCE PRN PRN Reason: Bradycardia Stop: 01/26/19 16:19 Bumetanide (Bumex) 3 mg IVP BIDDIURETIC [facility] Stop: 01/27/19 17:01 Buspirone HCl (Buspar) 15 mg PO BID [facility] Stop: 01/26/19 21:01 Last Admin: 07/28/18 07:20 Dose: 15 mg Ferrous Sulfate (Ferrous Sulfate) 325 mg PO DAILY [facility] Stop: 01/27/19 09:01 Last Admin: 07/28/18 07:21 Dose: 325 mg Isosorbide Mononitrate (Imdur) 30 mg PO DAILY [facility] Stop: 01/27/19 09:01 Last Admin: 07/28/18 07:21 Dose: 30 mg Magnesium Oxide (Mag-Ox) 400 mg PO DAILY [facility]; Protocol Stop: 01/27/19 09:01 Last Admin: 07/28/18 07:21 Dose: 400 mg Naloxone HCl (Narcan) 0.4 mg IVP Q2MIN PRN PRN Reason: SEE COMMENTS Stop: 01/26/19 15:17 Paroxetine HCl (Paxil) 40 mg PO DAILY [facility] Stop: 01/27/19 09:01 Last Admin: 07/28/18 07:21 Dose: 40 mg Simvastatin (Zocor) 40 mg PO QAM [facility]; Protocol Stop: 01/27/19 09:01 Last Admin: 07/28/18 07:21 Dose: 40 mg Vitamin D (Vitamin D) 1,000 unit PO DAILY [facility] Stop: 01/27/19 09:01 Last Admin: 07/28/18 07:21 Dose: 1,000 unit - Imaging and Cardiology Echo: report reviewed - EKG Interpretation EKG results cardiology: personally reviewed (A-Fib slow ventricular response rate 49), other (12 hr tele AVG HR 58, A-Fib) Consult Discharge Plan - Plan Referrals: Mariano Quintero MD [Primary Care Provider] -
--- NOTE | 2018-07-28 15:56 | IR Procedure Note ---
Date of procedure: 07/28/18 Consent Obtained: Verbal consent, Written consent Timeout: Correct patient and procedure verified, Correct site verified, Time out performed, Skin prep completed Local anesthetic: Lidocaine 1% Indications: ascites Procedure Performed: paracentesis Was there an office manager executive assistant present: No Site/Technique: abdomen Results/Findings: large ascites Estimated blood loss (cc): 0 Complications: None; Tolerated procedure well Post Procedure Treatment Plan: NA Specimen: 5.6 L straw color fluid
[2018-07-28 16:35] LABS: RBC,Peritoneal Fluid < 0.002 M/mcL
[2018-07-28] MEDS: Bumetanide 1 MG/4 ML VIAL IVP SCH (16:36)
--- NOTE | 2018-07-28 16:41 | Electrocardiograph Report ---
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
[2018-07-28 16:49] LABS: Total Protein,Peritoneal Fluid 3.4 g/dL (No Ref Range)
[2018-07-28 17:36] LABS: Appearance of Peritoneal Fl CLEAR (Clear)
[2018-07-29 04:51] LABS: BUN/Creatinine Ratio 20 (6-26); Blood Urea Nitrogen 24 mg/dL (6-20); Carbon Dioxide 30 mEq/L (23-29); Chloride 102 mEq/L (98-107); Glucose 96 mg/dL (70-105); Osmolality,Calculated 296 (280-300); Potassium 3.5 mEq/L (3.5-5.1); Sodium 141 mEq/L (136-145); eGFR For Non-African Americans > 60 (> 60)
--- NOTE | 2018-07-29 06:28 | Event Note ---
Date of Encounter: 07/29/18 Time of Encounter: 02:20 Nursing staff reported abnormal telemetry concerning for heart block. EKG was performed, with findings consistent for 2nd degree type 2 block. Patient denied any chest pain or discomfort. Plan for continuation of close telemetry and clinical monitoring.
[2018-07-29] MEDS: Cholecalciferol (D-3) 1,000 UNIT TABLET PO SCH (08:11)
[2018-07-29] MEDS: Isosorbide MONOnitrate (24 HR) 30 MG TAB.ER.24H PO SCH (08:11)
[2018-07-29] MEDS: Bumetanide 1 MG/4 ML VIAL IVP SCH (08:12)
[2018-07-29] MEDS: Magnesium Oxide 400 MG TABLET PO SCH (08:12)
--- NOTE | 2018-07-29 09:59 | Cardiology Progress Note ---
Date of Encounter: 07/29/18 Time of Encounter: 09:57 Assessment and Plan (1) Acute diastolic (congestive) heart failure Current Visit: Yes Status: Acute Hx of chronic diastolic CHF. BNP 658. Presented with worsening dyspnea, 10lb weight gain in the past week, abdominal distention and mild BLE edema. TTE 01/2018 EF 60-65%. Appears symptoms are mostly secondary to his cirrhosis/ascites. Currently on IV Bumex 3mg BID. Recommend GI evaluation. Consider Aldactone/loop diuretic combination. S/P paracentesis yesterday with 5.6L of fluid removed. Symptoms have improved. Recommend strict I/Os, Na and fluid restriction. Cardiology signing off. Reconsult PRN. Will coordinate outpt follow-up. (2) Ascites Current Visit: Yes Status: Acute Hx of JOLLEY and ascites. Large amount of ascites on admission, s/p paracentesis with 5.6L fluid removed. Management per primary team. Recommend consider GI consult. Qualifiers: Ascites type: other type Qualified Code(s): R18.8 - Other ascites (3) Atrial fibrillation with slow ventricular response Current Visit: Yes Status: Acute Known hx of A-Fib anticoagulated on Coumadin. INR 2.1. Home meds included Digoxin 125mcg daily and Lopressor 50mg BID. Both currently on hold due to bradycardia. Pt denies dizziness, lightheadedness or syncope. States his HR is typically 50s. HR has improved with holding AV kennedi blockers. 12 hr tele AVG HR 59, A-Fib. Lowest HR 40s nocturnally. Continue to hold. Event note states concern for heart block overnight. Pt is A-Fib. No heart block noted. Outpt follow-up. Discussion w patient/family: The assessment and plan as outlined above was discussed with the patient and/or family members who expressed understanding and agreement. All questions were an swered. Thank you for involving us in the care of your patient. Please call with any questions. I will discuss all the above with Dr. Vazquez and make changes as necessary. Subjective Principal diagnosis: CHF, bradycardia Interval history: S/P paracentesis yesterday with 5.6L fluid removed. Pt reports symptom improvement. 12 hr tele AVG HR 59, A-Fib. Event note with concern of heart block overnight. ECGs and telemetry reviewed. This pt is in A-Fib, no heard block noted. Lowest HR overnight 40s. Denies dizziness, lightheadedness or syncope. Objective Vital Signs, Last 4 Hours Temp Pulse Resp BP Pulse Ox 07/29/18 06:25 97.8 F 67 15 107/62 97 Vital Signs Temp Pulse Resp BP Pulse Ox 07/29/18 06:25 97.8 F 67 15 107/62 97 07/29/18 03:25 98.3 F 57 14 132/74 98 07/29/18 00:07 99.4 F 53 14 112/67 99 07/28/18 19:05 98.6 F 54 16 118/76 95 07/28/18 16:41 98.5 F 50 16 110/56 99 07/28/18 14:38 98.5 F 52 16 126/78 96 07/28/18 10:05 97.6 F 54 15 128/70 95 Intake and Output 07/28/18 07/29/18 07/29/18 23:59 07:59 15:59 Intake Total 800 / 800 0 / 0 360 / 360 Output Total 650 / 650 0 / 0 700 / 700 Balance 150 / 150 0 / 0 -340 / -340 Intake: Oral 800 / 800 0 / 0 360 / 360 Output: Urine 650 / 650 0 / 0 700 / 700 Other: Meal Dinner Breakfast Percent of Meal Consumed 100% 80% Stool Size Moderate Stool Consistency soft Stool Color Brown # Voids 1 # Bowel Movements 0 0 General: Conversant, No Apparent Distress HEENT: Atraumatic, Normocephaly, Mucus Membranes Moist Neck: Normal carotid pulses Cardiac: Other (irregularly irregular) Lungs: Normal Breath Sounds, No Wheeze, Rales, Rhonchi Neuro: Alert and responsive, No focal deficits noted Abdomen: Soft, Non-Tender Skin: No rashes noted on visualized skin Musculoskeletal: No Chest Wall Tenderness Extremities: No Clubbing, No Cyanosis, No Edema, Normal Pulses Results 07/28/18 06:11 07/29/18 04:08 Lab Results 07/29/18 04:08 Sodium 141 Potassium 3.5 Chloride 102 Carbon Dioxide 30 H BUN 24 H Creatinine 1.22 Glucose 96 Calcium 9.0 BMP 07/29/18 Range/Units 04:08 Sodium 141 (136-145) mEq/L Potassium 3.5 (3.5-5.1) mEq/L Chloride 102 (98-107) mEq/L Carbon Dioxide 30 H (23-29) mEq/L BUN 24 H (6-20) mg/dL Creatinine 1.22 (0.70-1.30) mg/dL Glucose 96 (70-105) mg/dL Calcium 9.0 (8.6-10.3) mg/dL Impressions Paracentesis Ultrasound 07/28/18 13:53 IMPRESSION: Successful ultrasound guided paracentesis. D/ / Naren Banks / Naren Banks Interpreting Provider: Naren Banks Active Medications Allopurinol (Zyloprim) 600 mg PO DAILY [facility] Stop: 01/27/19 09:01 Last Admin: 07/29/18 08:11 Dose: 600 mg Atropine Sulfate (Atropine) 0.5 mg IVP ONCE PRN PRN Reason: Bradycardia Stop: 01/26/19 16:19 Bumetanide (Bumex) 3 mg IVP BIDDIURETIC [facility] Stop: 01/27/19 17:01 Last Admin: 07/29/18 08:12 Dose: 3 mg Buspirone HCl (Buspar) 15 mg PO BID [facility] Stop: 01/26/19 21:01 Last Admin: 07/29/18 08:11 Dose: 15 mg Ferrous Sulfate (Ferrous Sulfate) 325 mg PO DAILY [facility] Stop: 01/27/19 09:01 Last Admin: 07/29/18 08:11 Dose: 325 mg Isosorbide Mononitrate (Imdur) 30 mg PO DAILY [facility] Stop: 01/27/19 09:01 Last Admin: 07/29/18 08:11 Dose: 30 mg Magnesium Oxide (Mag-Ox) 400 mg PO DAILY [facility]; Protocol Stop: 01/27/19 09:01 Last Admin: 07/29/18 08:12 Dose: 400 mg Naloxone HCl (Narcan) 0.4 mg IVP Q2MIN PRN PRN Reason: SEE COMMENTS Stop: 01/26/19 15:17 Paroxetine HCl (Paxil) 40 mg PO DAILY [facility] Stop: 01/27/19 09:01 Last Admin: 07/29/18 08:11 Dose: 40 mg Simvastatin (Zocor) 40 mg PO QAM [facility]; Protocol Stop: 01/27/19 09:01 Last Admin: 07/29/18 08:11 Dose: 40 mg Vitamin D (Vitamin D) 1,000 unit PO DAILY [facility] Stop: 01/27/19 09:01 Last Admin: 07/29/18 08:11 Dose: 1,000 unit - EKG Interpretation EKG results cardiology: other (12 hr tele AVG HR 59, A-Fib) Consult Discharge Plan - Plan Referrals: Mariano Quintero MD [Primary Care Provider] -
[2018-07-29 14:04] VITALS: BP 108/68
--- NOTE | 2018-07-29 15:49 | Discharge Summary ---
- NOTES TO OUTPATIENT PROVIDER Notes to Outpatient Provider: PCP in 5 to 7 days Date of Encounter: 07/29/18 Time of Encounter: 15:43 - Discharge Diagnosis (1) Ascites Priority: Primary Status: Acute Assessment and Plan: Secondary to nonalcoholic cirrhosis Tenderness and rebound improved No Leukocytosis or feverSBP unlikely IR was consulted and he is s/p paracentesis with 5.6 L removed. During paracentesis in may 2018, IR drained 5.2 L at that time. May consider pigtal cath in the future if recurrence more frequent. Patient is in agreement to hold Coumadin prior to procedure but that can be resumed at home post discharge. IR desires the INR to be less than 2- patient understands risks and benefits of holding anticoagulation and he agrees INR Jul 28, 2.1 Ascites fluid analysis reviewed and no signs of infection. Will resume home diuretics. HE is to f/u in [place] as scheduled. Qualifiers: Ascites type: other type Qualified Code(s): R18.8 - Other ascites (2) JOLLEY (nonalcoholic steatohepatitis) Priority: Secondary Status: Acute Assessment and Plan: Pt reports history of liver cirrhosis for which he follow up at [place], [place] with a specialist. (3) Chronic diastolic (congestive) heart failure Priority: Secondary Status: Chronic Assessment and Plan: Continue home medications Currently not an exacerbation (4) Chronic kidney disease, stage 3 Priority: Secondary Status: Chronic Assessment and Plan: Chronic CKD 3 Creatinine at baseline 1.49 F/U out pt with nephro and PCP as scheduled (5) Anemia Priority: Secondary Status: Acute Assessment and Plan: Chronic anemia Hemoglobin at baseline Qualifiers: Anemia type: unspecified type Qualified Code(s): D64.9 - Anemia, unspecified (6) Atrial fibrillation with slow ventricular response Priority: Primary Status: Acute Assessment and Plan: On digoxin and Coumadin and will resume at DC. Cardiology recommend hold BB and f/u out pt due to bradycardic HR was <50, No block per cardiology. Coumadin on hold for IR guided paracentesis but can resume (7) Obesity (BMI 30-39.9) Priority: Secondary Status: Chronic Assessment and Plan: Was counseled. Life style modification such as diet and exercise recommended. Hospital course: Mr. Amanda is a 57 year old male - Time Spent with Patient Total time spent providing and/or coordinating discharge services: - Discharge Medications Home Medications: Allopurinol [Zyloprim 300 MG] 600 mg PO DAILY 05/28/16 [History] Buspirone HCl [Buspar] 15 mg PO BID 05/28/16 [History] Potassium Chloride [K-Tab ER] 20 meq PO BID 05/28/16 [History] Simvastatin [Zocor] 40 mg PO QAM 05/28/16 [History] Magnesium Oxide [Mag-Ox] 400 mg PO DAILY 08/29/16 [History] Digoxin [Lanoxin] 0.125 mg PO DAILY #30 tab 05/06/17 [Rx] Isosorbide MONOnitrate (24 HR) [Imdur] 30 mg PO DAILY #30 tab.er.24h 05/06/17 [Rx] Cholecalciferol (Vitamin D3) [Vitamin D3] 2,000 unit PO DAILY 07/14/17 [History] Warfarin [Coumadin] 2 mg PO SUWESA 04/09/18 [History] Bumetanide [Bumex] 3 mg PO BID 07/27/18 [History] Ferrous Sulfate [Iron] 325 mg PO DAILY 07/27/18 [History] PARoxetine HCl [Paroxetine HCl] 40 mg PO DAILY 07/27/18 [History] Warfarin Sodium 4 mg PO MOTUTHFR 07/27/18 [History] Allergies/Adverse Reactions: Allergy/AdvReac Type Severity Reaction Status Date / Time No Known Allergies Allergy Verified 07/27/18 13:08 Date of admission: 07/27/18 16:37 Primary care physician: Mariano Quintero MD Consults: 07/28/18 13:07 Consult to Cardiology [CONS] Routine Comment: Consulting Provider: Cardiology Nelly Reason for Consult: chf Time Notified: 13:07 Call Completed: No Discharging clinician: Cecily Tom Anticipated date of discharge: 07/29/18 - Constitutional Vitals: Temp Pulse Resp BP Pulse Ox 98.0 F 55 15 108/68 96 07/29/18 14:00 07/29/18 14:00 07/29/18 14:00 07/29/18 14:00 07/29/18 14:00 General appearance: Present: A&O X 3, no acute distress Exam: . - Head Head exam: Present: atraumatic, normocephalic - Eye Eye exam: Present: PERRL, conjuntiva pink, sclera anicteric Pupils: Present: PERRL - Neck Neck exam general surgery: Present: supple, trachea midline. Absent: lymphadenopathy - Respiratory Respiratory exam: Present: CTAB. Absent: accessory muscle use, rales, rhonchi, wheezes - Cardiovascular Cardiovascular exam: Present: irregular rhythm, +S1, +S2. Absent: diastolic murmur, gallop, RRR, rubs, systolic murmur - GI/Abdominal GI/Abdominal exam: Present: distended, normal bowel sounds, soft, no peritoneal signs. Absent: tenderness Additional comments: decreased distension and tenderness - Extremities Exam Extremities exam: Present: warm, radial pulses palpable and symmetrical. Absent: calf tenderness, cyanotic, pedal edema - Neurological Exam Neurological exam: Present: CN II-XII intact, oriented X3, no focal deficits. Absent: pronater drift, facial droop, speech deficit - Skin Skin exam: Present: dry, intact - Patient Status Disposition: Home, Self-Care Condition: Good Overall status at discharge: patient is back to baseline - Discharge Instructions Follow Up With: Mariano Quintero MD [Primary Care Provider] - - Diet and Activity Activity: increase activity as tolerated Diet: low fat, low cholesterol, low salt diet
--- NOTE | 2018-07-29 16:14 | Electrocardiograph Report ---
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
== END 2018-07-29 16:57 | disposition home or self-care (01) ==
LOC: 3ANU 12:53 → EMEROOARM 12:53 → 3ANU 18:41
PROVIDERS: ADMIT Internal Medicine; ATTEND Internal Medicine

== ENCOUNTER 2019-04-18 16:59 | Observation (INO) ==
[2019-04-18 18:12] LABS: Hematocrit 39.2 % (37.5-50.1); Hemoglobin 12.3 g/dL (12.9-16.9); Mean Corpuscular HGB Conc 31.4 g/dL (31.6-35.5); Red Cell Distribution Width 19.1 % (11.5-14.5)
[2019-04-18 18:13] LABS: Basophils % 0.2 %; Eosinophils # 0.1 K/mcL (0.0-0.6); Eosinophils % 1.1 %; Immature Granulocytes % 0.3 % (0-4); Immature Platelets 7.4 % (1.1-6.1); Lymphocytes # 0.9 K/mcL (0.6-4.6); Lymphocytes % 14.8 %; Mean Corpuscular Hemoglobin 26.9 pg (28.0-33.3); Mean Corpuscular Volume 85.6 fL (83.0-100.0); Monocytes # 0.6 K/mcL (0.0-1.3); Monocytes % 9.9 %; Red Blood Count 4.58 M/mcL (4.19-5.50); Segmented Neutrophils % 73.7 %; White Blood Count 6.2 K/mcL (4.3-11.1)
[2019-04-18 18:14] LABS: Neutrophils # 4.6 K/mcL (1.6-8.9); Platelet Count 98 K/mcL (140-400)
[2019-04-18 18:45] LABS: Albumin 3.7 g/dL (3.5-5.7); Albumin/Globulin Ratio 1.7 (1.1-2.2); Bilirubin,Direct 0.5 mg/dL (0.0-0.2); Bilirubin,Indirect 0.9 mg/dL (0.0-1.2); Bilirubin,Total 1.4 mg/dL (0.3-1.0); Calcium 8.9 mg/dL (8.6-10.3); Globulin 2.2 g/dL (2.4-3.5); Potassium 3.7 mEq/L (3.5-5.1); Total Protein 5.9 g/dL (6.4-8.9); Troponin I 0.06 ng/mL (< 0.04)
[2019-04-18 19:41] LABS: INR 2.5; Prothrombin Time 28.6 Seconds (9.4-12.1)
--- NOTE | 2019-04-18 20:39 | Emergency Department Note ---
Disposition Clinical Impression: Elevated troponin Ascites Qualifiers: Ascites type: other type Qualified Code(s): R18.8 - Other ascites CKD (chronic kidney disease) Qualifiers: Chronic kidney disease stage: stage 3 (moderate) Qualified Code(s): N18.3 - Chronic kidney disease, stage 3 (moderate) Disposition: Admitted As Inpatient Condition: Fair Time of Disposition: 21:15 General Adult HPI - General Chief complaint: ED Shortness of Breath/Dyspnea Stated complaint: SHAYNE "Fluid Build Up" Time Seen by Provider: 04/18/19 18:30 Source: patient Mode of arrival: ambulatory Limitations: no limitations Nursing Notes Reviewed: Yes Vital Signs Reviewed: Yes - History of Present Illness HPI Narrative: Patient is a 58-year-old male that presents emergency Department with reports of retaining fluid. Patient states that he had a history of ascites and requires paracentesis. Patient states last person these was approximately one month ago. Patient states that over the past few days he has gained significant amount of weight. Patient states over the past 2 days has been at least 10 pounds. Patient states that he has a history of venous of heart failure, cirrhosis and kidney disease. Patient states that he is not having any abdominal pain and his belly just feels tense from the fluid that has accumulated. Patient states that he does have a history of age fibrillation and takes warfarin. Patient states that in the past there were unable to do the paracentesis due to having elevated INR. Patient states that he is not having any other symptoms at this time. Patient is a chest pain, shortness of breath, numbness, wheezes, tingling or changes in mentation. Pain Scale: 0 - Related Data Home Medications Medication Instructions Recorded Confirmed Allopurinol [Zyloprim 300 MG] 600 mg PO DAILY 05/28/16 01/12/19 Potassium Chloride [K-Tab ER] 20 meq PO BID 05/28/16 01/12/19 Simvastatin [Zocor] 40 mg PO QPM 05/28/16 01/12/19 Magnesium Oxide [Mag-Ox] 400 mg PO DAILY 08/29/16 01/12/19 Bumetanide [Bumex] 3 mg PO BID 07/27/18 01/12/19 Ferrous Sulfate [Iron] 325 mg PO DAILY 07/27/18 01/12/19 PARoxetine HCl [Paroxetine HCl] 40 mg PO DAILY 07/27/18 01/12/19 Warfarin Sodium 4 mg PO DAILY 07/27/18 01/12/19 Buspirone HCl [Buspar] 15 mg PO BID 01/12/19 01/12/19 GlipiZIDE [Glucotrol] 5 mg PO DAILY 01/12/19 01/12/19 Valsartan [Diovan] 160 mg PO DAILY 01/12/19 01/12/19 Previous Rx's Medication Instructions Recorded Digoxin [Lanoxin] 0.125 mg PO DAILY #30 tab 05/06/17 Isosorbide MONOnitrate (24 HR) 30 mg PO DAILY #30 tab.er.24h 05/06/17 [Imdur] Aspirin 81 mg PO DAILY #30 tab.chew 01/13/19 Atorvastatin [Lipitor] 80 mg PO HS #30 tablet 01/13/19 Clopidogrel [Plavix] 75 mg PO DAILY #30 tablet 01/13/19 Metoprolol XL (24 HR) Succ [Toprol 25 mg PO DAILY tab.er.24h 01/13/19 Xl] Nitroglycerin 0.4 mg SL Q5M PRN #25 tab.subl 01/13/19 Allergies Allergy/AdvReac Type Severity Reaction Status Date / Time No Known Allergies Allergy Verified 02/08/19 10:43 All systems ED: reviewed and negative except as stated. Constitutional: Denies: fever Cardiovascular: Denies: chest pain Respiratory: Denies: dyspnea Gastrointestinal: Reports: other (abdominal distention ). Denies: abdominal pain, nausea, vomiting Neurological: Denies: weakness, numbness, paresthesias Past Medical History - Past Medical History Medical history: Reports: atrial fibrillation, CHF, coronary artery disease, diabetes, hyperlipidemia, hypertension, liver disease, myocardial infarction, renal disease Surgical history: Reports: angioplasty/stent, other Psychiatric history: Reports: anxiety, depression - Social History Smoking Status: Never smoker Smokeless Tobacco Status: No Alcohol use: Reports: none Drug use: Reports: none Physical Exam - General Limitations: no limitations General appearance: alert, in no apparent distress - Head Head exam: atraumatic, normocephalic - Eye Eye exam: Present: normal appearance, EOMI - Neck Neck exam: Present: normal inspection, full ROM, trachea midline - Respiratory Respiratory exam: Present: normal lung sounds bilaterally. Absent: respiratory distress, wheezes - Cardiovascular Cardiovascular exam: Present: regular rate, normal rhythm, normal heart sounds, +S1, +S2 - Abdominal Exam Abdominal exam: Present: soft, Non-Tender, distention, normal bowel sounds - Neurological Exam Neurological exam: Present: alert, oriented X3 - Psychiatric Psychiatric exam: Present: normal affect, normal mood - Skin Skin exam: Present: warm, dry, intact Course Vital Signs Temperature 97.7 F 04/18/19 17:05 Pulse Rate 66 04/18/19 17:05 Respiratory Rate 20 04/18/19 17:05 Blood Pressure 133/87 04/18/19 17:05 O2 Sat by Pulse Oximetry 96 04/18/19 17:05 Temperature 97.7 F 04/18/19 18:57 Pulse Rate 66 04/18/19 18:57 Respiratory Rate 20 04/18/19 18:57 Blood Pressure 133/87 04/18/19 18:57 O2 Sat by Pulse Oximetry 96 04/18/19 18:57 Oxygen Delivery Oxygen Delivery Room Air Medical Decision Making - MDM Narrative Medical decision making narrative: Due the patient's and into the emergency department with reports of ascites we will obtain basic laboratory testing. Patient does have an elevated troponin of 0.06. This is chronic for the patient. Patient does have an elevated kidney function which again is chronic for the patient and roughly at his baseline. Due to the patient having rapid accumulation of the ascites and feeling distended and somewhat short of breath because of his ascites feel it is most appropriate for him to be admitted to the hospital. He did have an INR of 2.5. I called and spoke the admitting hospitalist Dr. Gutierrez who recommended that the patient have a dose of vitamin K. 5 mg of oral vitamin K was given at the hospitalist request. Patient will be admitted to the hospital for a paracentesis with interventional radiology. Due to the patient having the elevated INR of 2.5 did not feel comfortable performing this procedure in the emergency department. Dr. Gutierrez agreed to accept the patient for admission and will admit the patient to the medical service. - Medical Records Medical records reviewed: Yes I reviewed the patient's medical records. - Lab Data Lab results reviewed: Yes I reviewed the patient's lab results. Result diagrams: 04/18/19 18:00 04/18/19 18:00 Lab Results 04/18/19 04/18/19 04/18/19 Range/Units 18:00 18:00 18:00 WBC 6.2 (4.3-11.1) K/mcL RBC 4.58 (4.19-5.50) M/mcL Hgb 12.3 L (12.9-16.9) g/dL Hct 39.2 (37.5-50.1) % MCV 85.6 (83.0-100.0) fL MCH 26.9 L (28.0-33.3) pg MCHC 31.4 L (31.6-35.5) g/dL RDW 19.1 H (11.5-14.5) % Plt Count 98 L (140-400) K/mcL MPV 12.0 (9.4-12.4) fL Immature Gran % 0.3 (0-4) % Seg Neutrophils % 73.7 % Lymphocytes % 14.8 % Monocytes % 9.9 % Eosinophils % 1.1 % Basophils % 0.2 % Neutrophils # 4.6 (1.6-8.9) K/mcL Lymphocytes # 0.9 (0.6-4.6) K/mcL Monocytes # 0.6 (0.0-1.3) K/mcL Eosinophils # 0.1 (0.0-0.6) K/mcL Basophils # 0.0 (0.0-0.2) K/mcL Immature Plt Fraction 7.4 H (1.1-6.1) % PT (9.4-12.1) Seconds INR Sodium 135 L (136-145) mEq/L Potassium 3.7 (3.5-5.1) mEq/L Chloride 98 (98-107) mEq/L Carbon Dioxide 26 (23-29) mEq/L BUN 35 H (6-20) mg/dL Creatinine 1.68 H (0.70-1.30) mg/dL Est GFR ( Amer) 51 L (> 60) Est GFR (Non-Af Amer) 42 L (> 60) BUN/Creatinine Ratio 21 (6-26) Glucose 224 H (70-105) mg/dL Calculated Osmolality 295 (280-300) Lactic Acid (0.5-2.2) mmol/L Calcium 8.9 (8.6-10.3) mg/dL Total Bilirubin 1.4 H (0.3-1.0) mg/dL Direct Bilirubin 0.5 H (0.0-0.2) mg/dL Indirect Bilirubin 0.9 (0.0-1.2) mg/dL AST 23 (13-39) Units/L ALT 29 (7-52) Units/L Alkaline Phosphatase 279 H (34-104) Units/L Troponin I 0.06 H* (< 0.04) ng/mL B-Natriuretic Peptide 391 H (Less than 100) pg/mL Serum Total Protein 5.9 L (6.4-8.9) g/dL Albumin 3.7 (3.5-5.7) g/dL Globulin 2.2 L (2.4-3.5) g/dL Albumin/Globulin Ratio 1.7 (1.1-2.2) 04/18/19 04/18/19 Range/Units 18:00 18:55 WBC (4.3-11.1) K/mcL RBC (4.19-5.50) M/mcL Hgb (12.9-16.9) g/dL Hct (37.5-50.1) % MCV (83.0-100.0) fL MCH (28.0-33.3) pg MCHC (31.6-35.5) g/dL RDW (11.5-14.5) % Plt Count (140-400) K/mcL MPV (9.4-12.4) fL Immature Gran % (0-4) % Seg Neutrophils % % Lymphocytes % % Monocytes % % Eosinophils % % Basophils % % Neutrophils # (1.6-8.9) K/mcL Lymphocytes # (0.6-4.6) K/mcL Monocytes # (0.0-1.3) K/mcL Eosinophils # (0.0-0.6) K/mcL Basophils # (0.0-0.2) K/mcL Immature Plt Fraction (1.1-6.1) % PT 28.6 H (9.4-12.1) Seconds INR 2.5 Sodium (136-145) mEq/L Potassium (3.5-5.1) mEq/L Chloride (98-107) mEq/L Carbon Dioxide (23-29) mEq/L BUN (6-20) mg/dL Creatinine (0.70-1.30) mg/dL Est GFR ( Amer) (> 60) Est GFR (Non-Af Amer) (> 60) BUN/Creatinine Ratio (6-26) Glucose (70-105) mg/dL Calculated Osmolality (280-300) Lactic Acid 1.5 (0.5-2.2) mmol/L Calcium (8.6-10.3) mg/dL Total Bilirubin (0.3-1.0) mg/dL Direct Bilirubin (0.0-0.2) mg/dL Indirect Bilirubin (0.0-1.2) mg/dL AST (13-39) Units/L ALT (7-52) Units/L Alkaline Phosphatase (34-104) Units/L Troponin I (< 0.04) ng/mL B-Natriuretic Peptide (Less than 100) pg/mL Serum Total Protein (6.4-8.9) g/dL Albumin (3.5-5.7) g/dL Globulin (2.4-3.5) g/dL Albumin/Globulin Ratio (1.1-2.2) - Radiology Data Radiology results reviewed: Yes I reviewed the patient's radiology results. Chest X-Ray 04/18/19 17:08 IMPRESSION: Mild pulmonary edema. D/ / Rony Aranda MD / Rony Aranda MD Interpreting Provider: Rony Aranda MD - EKG Data EKG #1 EKG attestation: Yes I reviewed and interpreted this EKG. EKG results narrative: Patient's EKG shows atrial fibrillation with occasional PVCs. Ventricular rate is 72 bpm, curious duration 14, QTc 437. No evidence of STEMI on EKG. This compared to prior EKG on 06/05/40. Attestation Statement - Attestation Attestation: I, Alan Nguyen, examined this patient and my medical decision-making was reviewed with the WEB ANALYST/PA/Advanced Practice Nurse/Resident Physician. I agree with the documented findings, disposition and treatment plan as described except to the extent set forth below. 58-year-old male presents emergency Department with concerns of difficulty br eathing and weight gain. Patient states he has gained 20 pounds over the past 3 days. He has a history of renal and liver failure which have caused ascites which has been drained in the past most recently 1 month ago. Patient states that his weight gain has been rapid over the past few days. He has difficulty with ambulation and becomes short of breath. Patient follows with Dr. Encarnacion and Dr. Rivero. We are unable to do a paracentesis in the emergency department secondary to elevation of INR. Patient will be admitted to the hospitalist for further care and evaluation and interventional radiology drainage of his abdomen.
[2019-04-18] MEDS ORDERED: *HR* Phytonadione 5 MG TABLET PO ONE (21:07)
[2019-04-19] MEDS ORDERED: Naloxone 0.4 MG/ML INJ IVP PRN (02:06)
[2019-04-19] MEDS ORDERED: Dextrose Gel 15 GM/37.5 ML TUBE PO PRN ×2 (02:10)
[2019-04-19] MEDS ORDERED: *HR* Dextrose 50 % in Water (Syg) 50 ML SYRINGE IVP PRN (02:10)
[2019-04-19] MEDS ORDERED: D5% in Water 1,000 ML IVC PRN (02:10)
--- NOTE | 2019-04-19 02:17 | Internal Med History&Physical ---
Date of Encounter: 04/19/19 Time of Encounter: 01:20 Internal Medicine - H&P: HPI Chief complaint: Ascites Admitted From: Emergency Dept Plans for Post Hospital Care: Home History of present illness: Mr. Amanda is a 58 year old male Patient presented to the emergency department with ascites. He says that about 2 weeks ago he was at his GI doctor's office. At that time he weighed 259 pounds. He is retained fluid in his abdomen and now says that he has gained about 30 pounds. He has required paracentesis in the past most recently about one month ago. He has a history of cirrhosis, diabetes and chronic kidney di sease. He takes Coumadin for atrial fibrillation. In the emergency department patient's initial vital signs: Temperature 97.7, pulse 66, respiratory rate 20, blood pressure 133/87, O2 saturation 96%. CBC notable for hemoglobin of 12.3 and a platelet count of 98. BMP: Notable of a creatinine of 1.68 and GFR 42. Glucose of 224. INR 2.5 Total bilirubin 1.4 Alkaline phosphatase 279 AST 23 ALT 29 Initial troponin 0.06 Chest x-ray revealed mild pulmonary edema EKG: Atrial fibrillation, rate 72, QTC 437 no acute ischemic changes Paracentesis could not be performed in the emergency department due to elevated INR. The emergency department gave the patient 5 mg of vitamin K and admitted the patient for further management. Upon my evaluation, patient is resting comfortably in hospital chair in no acute distress. He denies chest pain, abdominal pain, nausea, vomiting, diarrhea and constipation. He is a full code. Past Med Surg Social Fam HX - Past Medical History Medical history: atrial fibrillation, CHF, coronary artery disease, diabetes, hyperlipidemia, hypertension, liver disease, myocardial infarction, renal disease Additional medical history: SLEEP APNEA Psychiatric history: anxiety, depression - Past Surgical History Surgical History: angioplasty/stent, other Additional surgical history: Heart cath 2013. heart stent December 2018. paracentesis. hemorrhoid surgery - Social History Smoking Status: Never smoker Smokeless Tobacco Status: No Alcohol use: none Drug use: none - Family History Sister Family Member Ethnicity: Non- Living Status: Hx Family Cardiac Disorders: Yes Hx Family Respiratory Disorders: No Hx Family Cancer: No Hx Family GI Disorders: No Hx Family Endocrine Disorder: No Hx Family Neuromuscular Disorders: No Hx Family Neurologic Disorders: No Hx Family HEENT Disorders: No Hx Family Autoimmune Disorders: No Mother Family Member Ethnicity: Non- Living Status: Still Living Hx Family Cancer: Yes (breast cancer) Father Family Member Ethnicity: Non- Living Status: Hx Family Cardiac Disorders: Yes Hx Family Respiratory Disorders: No Hx Family Cancer: No Hx Family GI Disorders: No Hx Family Endocrine Disorder: Yes (DM) Hx Family Neuromuscular Disorders: No Hx Family Neurologic Disorders: Yes (Alzheimers) Hx Family HEENT Disorders: No Hx Family Autoimmune Disorders: No Internal Medicine - H&P: Meds Allopurinol [Zyloprim 300 MG] 300 mg PO DAILY 05/28/16 [History] Potassium Chloride [K-Tab ER] 20 meq PO BID 05/28/16 [History] Simvastatin [Zocor] 40 mg PO QPM 05/28/16 [History] Magnesium Oxide [Mag-Ox] 400 mg PO DAILY 08/29/16 [History] Isosorbide MONOnitrate (24 HR) [Imdur] 30 mg PO DAILY #30 tab.er.24h 05/06/17 [Rx] Bumetanide [Bumex] 3 mg PO BID 07/27/18 [History] Ferrous Sulfate [Iron] 325 mg PO DAILY 07/27/18 [History] PARoxetine HCl [Paroxetine HCl] 40 mg PO DAILY 07/27/18 [History] Warfarin Sodium 4 mg PO DAILY 07/27/18 [History] Buspirone HCl [Buspar] 15 mg PO BID 01/12/19 [History] GlipiZIDE [Glucotrol] 5 mg PO DAILY 01/12/19 [History] Atorvastatin [Lipitor] 80 mg PO HS #30 tablet 01/13/19 [Rx] Clopidogrel [Plavix] 75 mg PO DAILY #30 tablet 01/13/19 [Rx] Metoprolol XL (24 HR) Succ [Toprol Xl] 25 mg PO DAILY tab.er.24h 01/13/19 [Rx] Nitroglycerin 0.4 mg SL Q5M PRN #25 tab.subl 01/13/19 [Rx] Allergy/AdvReac Type Severity Reaction Status Date / Time No Known Allergies Allergy Verified 02/08/19 10:43 All Systems PM: A 10-system review of systems was performed and is negative for pertinent findings except as documented above in the HPI. - Constitutional Vitals: Temp Pulse Resp BP Pulse Ox 97.7 F 62 18 137/73 97 04/18/19 22:52 04/18/19 22:52 04/18/19 22:52 04/18/19 22:52 04/18/19 22:52 General appearance: Present: cooperative, A&O X 3, pleasant, answers questions appropriately Exam: - - Head Head exam: Present: normal inspection - Eye Eye exam: Present: EOMI, normal appearance - Respiratory Respiratory exam: Present: CTAB. Absent: rales, respiratory distress, rhonchi, wheezes - Cardiovascular Cardiovascular exam: Present: RRR. Absent: diastolic murmur, systolic murmur - GI/Abdominal GI/Abdominal exam: Present: distended, firm, normal bowel sounds, soft. Absent: tenderness - Extremities Exam Extremities exam: Present: warm, radial pulses palpable and symmetrical. Absent: calf tenderness, pedal edema, tenderness - Neurological Exam Neurological exam: Present: motor sensory deficit, facial droop, speech deficit. Absent: no focal deficits, strengths equal and symetr throughout - Skin Skin exam: Present: dry, normal color, warm Internal Med - H&P Results - Labs CBC & Chem 7: 04/18/19 18:00 04/18/19 18:00 Labs: Short CBC 04/18/19 Range/Units 18:00 WBC 6.2 (4.3-11.1) K/mcL Hgb 12.3 L (12.9-16.9) g/dL Hct 39.2 (37.5-50.1) % Plt Count 98 L (140-400) K/mcL Neutrophils # 4.6 (1.6-8.9) K/mcL BMP 04/18/19 18:00 Sodium 135 L Potassium 3.7 Chloride 98 Carbon Dioxide 26 BUN 35 H Creatinine 1.68 H Glucose 224 H Calcium 8.9 Cardiac Enzymes 04/18/19 Range/Units 18:00 Troponin I 0.06 H* (< 0.04) ng/mL Liver Function 04/18/19 Range/Units 18:00 Total Bilirubin 1.4 H (0.3-1.0) mg/dL Direct Bilirubin 0.5 H (0.0-0.2) mg/dL AST 23 (13-39) Units/L ALT 29 (7-52) Units/L Alkaline Phosphatase 279 H (34-104) Units/L Albumin 3.7 (3.5-5.7) g/dL - Impressions ITS Impressions Chest X-Ray 04/18/19 17:08 IMPRESSION: Mild pulmonary edema. D/ / Rony Aranda MD / Royn Aranda MD Interpreting Provider: Rony Aranda MD - Assessment and Plan (1) Ascites Current Visit: Yes Status: Acute Assessment and plan: History of [place] cirrhosis. Last paracentesis was March 19. IR consult in the morning Qualifiers: Ascites type: other type Qualified Code(s): R18.8 - Other ascites (2) Diabetes Current Visit: Yes Status: Acute Assessment and plan: Patient is not an insulin dependent diabetic Monitor sugars ACHS Diabetic diet Low dose insulin sliding scale as needed Hold home meds. 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 Diabetes mellitus complication status: with hyperglycemia Qualified Code(s): E11.65 - Type 2 diabetes mellitus with hyperglycemia (3) CKD (chronic kidney disease) Current Visit: Yes Status: Acute Assessment and plan: Creatinine at baseline Continue to monitor Repeat labs in the morning Qualifiers: Chronic kidney disease stage: stage 3 (moderate) Qualified Code(s): N18.3 - Chronic kidney disease, stage 3 (moderate) (4) Troponin level elevated Current Visit: Yes Status: Chronic Assessment and plan: Patient has chronically elevated troponin, 0.06 initially, increasing to 0.08 on the medical floor. EKG negative for ischemic changes, and patient has no chest pain. Likely secondary to kidney disease and ascites. Continue to monitor Cardiac telemetry (5) Atrial fibrillation Current Visit: No Status: Chronic Assessment and plan: Patient takes metoprolol. Patient's current INR at 2.5. He received 5 mg of v itamin K in the emergency department to help bring this down so that he can have a paracentesis procedure performed in the morning. Repeat INR in the morning Continue to manage, resume Coumadin at discharge Qualifiers: Atrial fibrillation type: chronic Qualified Code(s): I48.2 - Chronic atrial fibrillation (6) Obstructive sleep apnea Current Visit: No Status: Chronic Assessment and plan: Continue CPAP (7) DVT prophylaxis Current Visit: No Status: Acute Assessment and plan: Patient on Coumadin. Continue to monitor INRs - Time Spent With Patient Total time spent is greater than 50% in coordination of care (as documented) at patient's floor/unit and/or counseling patient: Greater than 35 minutes
[2019-04-19 06:16] LABS: Hematocrit 41.8 % (37.5-50.1); Hemoglobin 12.8 g/dL (12.9-16.9); Mean Corpuscular HGB Conc 30.6 g/dL (31.6-35.5); Mean Corpuscular Hemoglobin 26.4 pg (28.0-33.3); Mean Corpuscular Volume 86.2 fL (83.0-100.0); Mean Platelet Volume 12.6 fL (9.4-12.4); Platelet Count 123 K/mcL (140-400); Red Blood Count 4.85 M/mcL (4.19-5.50); Red Cell Distribution Width 19.3 % (11.5-14.5); White Blood Count 7.4 K/mcL (4.3-11.1)
[2019-04-19 06:33] LABS: INR 2.1; Prothrombin Time 23.7 Seconds (9.4-12.1)
[2019-04-19 06:35] LABS: Calcium 9.5 mg/dL (8.6-10.3); Potassium 4.4 mEq/L (3.5-5.1)
[2019-04-19] MEDS ORDERED: *HR* Phytonadione 10 MG/ML AMPUL SQ ONE ×2 (08:02→12:09)
[2019-04-19] MEDS ORDERED: Spironolactone 25 MG TABLET PO SCH (09:00)
[2019-04-19] MEDS: Insulin LISPRO 300 UNITS/3 ML VIAL SQ SCH ×3 (10:34→16:42)
[2019-04-19] MEDS: Metoprolol XL (24 HR) Succ 25 MG TAB.ER.24H PO SCH (11:06)
--- NOTE | 2019-04-19 11:16 | Event Note ---
Date of Encounter: 04/19/19 Time of Encounter: 11:12 I have seen and evaluated the patient at bedside. H&P, vitals and labs reviewed. Patient denies shortness of breath at rest. Denied chest pain, abdominal pain, nausea or vomiting. INR being corrected. Vitamin K ordered. Will repeat INR at noon. IR consulted for paracentesis. will continue to follow up.
[2019-04-19 12:29] LABS: INR 1.9; Prothrombin Time 21.4 Seconds (9.4-12.1)
[2019-04-19] MEDS: Bumetanide 1 MG TABLET PO SCH (16:38)
--- NOTE | 2019-04-19 16:38 | Electrocardiograph Report ---
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
[2019-04-19] MEDS ORDERED: Insulin LISPRO 300 UNITS/3 ML VIAL SQ SCH (21:00)
[2019-04-20] MEDS: Insulin LISPRO 300 UNITS/3 ML VIAL SQ SCH ×2 (07:47→11:49)
[2019-04-20] MEDS: Bumetanide 1 MG TABLET PO SCH (08:50)
[2019-04-20] MEDS ORDERED: Isosorbide MONOnitrate (24 HR) 30 MG TAB.ER.24H PO SCH (09:00)
[2019-04-20] MEDS: Metoprolol XL (24 HR) Succ 25 MG TAB.ER.24H PO SCH (09:01)
--- NOTE | 2019-04-20 10:39 | Discharge Summary ---
- NOTES TO OUTPATIENT PROVIDER Notes to Outpatient Provider: Patient will need follow-up with PCP as well as gastroenterology for managing effective diuresis. We will need to monitor his INR closely given history of cirrhosis at high risk of bleeding. His bleeding risk is high with cirrhosis, thrombocytopenia and plavix use with warfarin and should continue to evaluate outpatient regarding his risk and benefit of Coumadin use. Also risk with hypoglycemia with glipizide and cirrhosis and showed consider close monitoring. He is on simvastatin which could be switched to higher intensity statin Date of Encounter: 04/20/19 Time of Encounter: 09:37 - Discharge Diagnosis (1) Troponin level elevated Priority: Primary Status: Chronic (2) Obstructive sleep apnea Priority: Secondary Status: Chronic (3) Atrial fibrillation Priority: Secondary Status: Chronic Qualifiers: Atrial fibrillation type: chronic Qualified Code(s): I48.2 - Chronic atrial fibrillation (4) Ascites Priority: Primary Status: Acute Qualifiers: Ascites type: other type Qualified Code(s): R18.8 - Other ascites (5) DVT prophylaxis Priority: Secondary Status: Acute (6) CKD (chronic kidney disease) Priority: Secondary Status: Acute Qualifiers: Chronic kidney disease stage: stage 3 (moderate) Qualified Code(s): N18.3 - Chronic kidney disease, stage 3 (moderate) (7) Diabetes Priority: Secondary Status: Acute Qualifiers: Diabetes mellitus type: type 2 Diabetes mellitus retirement insulin use: without retirement use Diabetes mellitus complication status: with hyperglycemia Qualified Code(s): E11.65 - Type 2 diabetes mellitus with hyperglycemia Hospital course: Mr. Amanda is a 58 year old male with past medical history of atrial fibrillation, coronary artery disease, hypertension, hyperlipidemia, liver cirrhosis from [place] came in with abdominal distention and difficulty breathing. He had paracentesis about a month ago. Patient is on Coumadin for A. fib and could not have had paracentesis done in the ER. He was given vitamin K and admitted for paracentesis. Patient had IR guided paracentesis done and approximately 2 L were taken out. Patient does have chronic kidney disease and his renal function remained stable. He also had elevated troponin but without any symptom or EKG changes and has been chronic. Patient feels well today without and difficulty breathing and stable to be discharged home to follow with PCP in gastroenterology. Encouraged good protein intake and salt and fluid restriction. Will need close PCP and gastroenterology follow-up for better diuresis. Discharge discussed with: patient, nurse, social work - Time Spent with Patient Total time spent providing and/or coordinating discharge services: Time spent: Greater than 30 minutes (35) - Discharge Medications Prescriptions: Continued Allopurinol [Zyloprim 300 MG] 300 mg PO DAILY Simvastatin [Zocor] 40 mg PO QPM Potassium Chloride [K-Tab ER] 20 meq PO BID Magnesium Oxide [Mag-Ox] 400 mg PO DAILY Ferrous Sulfate [Iron] 325 mg PO DAILY PARoxetine HCl [Paroxetine HCl] 40 mg PO DAILY Warfarin Sodium 4 mg PO SUTUWETHFRSA Bumetanide [Bumex] 3 mg PO BID Buspirone HCl [Buspar] 15 mg PO BID GlipiZIDE [Glucotrol] 5 mg PO DAILY Atorvastatin [Lipitor] 80 mg PO HS #30 tablet Clopidogrel [Plavix] 75 mg PO DAILY #30 tablet Nitroglycerin 0.4 mg SL Q5M PRN #25 tab.subl PRN Reason: Chest Pain Metoprolol XL (24 HR) Succ [Toprol Xl] 25 mg PO DAILY tab.er.24h Warfarin [Coumadin] 4 mg PO MO Isosorbide MONOnitrate (24 HR) [Imdur] 30 mg PO DAILY #30 tab.er.24h Home Medications: Allopurinol [Zyloprim 300 MG] 300 mg PO DAILY 05/28/16 [History] Potassium Chloride [K-Tab ER] 20 meq PO BID 05/28/16 [History] Simvastatin [Zocor] 40 mg PO QPM 05/28/16 [History] Magnesium Oxide [Mag-Ox] 400 mg PO DAILY 08/29/16 [History] Isosorbide MONOnitrate (24 HR) [Imdur] 30 mg PO DAILY #30 tab.er.24h 05/06/17 [Rx] Bumetanide [Bumex] 3 mg PO BID 07/27/18 [History] Ferrous Sulfate [Iron] 325 mg PO DAILY 07/27/18 [History] PARoxetine HCl [Paroxetine HCl] 40 mg PO DAILY 07/27/18 [History] Warfarin Sodium 4 mg PO SUTUWETHFRSA 07/27/18 [History] Buspirone HCl [Buspar] 15 mg PO BID 01/12/19 [History] GlipiZIDE [Glucotrol] 5 mg PO DAILY 01/12/19 [History] Atorvastatin [Lipitor] 80 mg PO HS #30 tablet 01/13/19 [Rx] Clopidogrel [Plavix] 75 mg PO DAILY #30 tablet 01/13/19 [Rx] Metoprolol XL (24 HR) Succ [Toprol Xl] 25 mg PO DAILY tab.er.24h 01/13/19 [Rx] Nitroglycerin 0.4 mg SL Q5M PRN #25 tab.subl 01/13/19 [Rx] Warfarin [Coumadin] 4 mg PO MO 04/19/19 [History] Allergies/Adverse Reactions: Allergy/AdvReac Type Severity Reaction Status Date / Time No Known Allergies Allergy Verified 02/08/19 10:43 Date of admission: 04/18/19 21:32 Primary care physician: Mariano Quintero MD Consults: 04/19/19 03:34 Consult to Interventional Radiology [CONS] Routine Consulting Provider: Radiology Interventional Cols Reason for Consult: Paracentesis Call Completed: No Discharging clinician: Oscar Gillette - Constitutional Vitals: Temp Pulse Resp BP Pulse Ox 98.0 F 57 18 101/68 96 04/20/19 07:13 04/20/19 07:13 04/20/19 07:13 04/20/19 07:13 04/20/19 07:13 General appearance: Present: pleasant Exam: General: In no acute distress. Obese Respiratory exam: no accessory muscle use. crackles at base Cardiovascular exam: RRR, +S1, +S2. no murmur, gallop, rubs. GI/Abdominal exam: Non-tender, distended, normal bowel sounds, soft, no peritoneal signs. Extremities exam: 2+ pedal edema b/l. no calf tenderness Neurological exam: CN II-XII intact, AO X3, no focal deficits. Skin exam: No skin rash - Patient Status Disposition: Home, Self-Care Condition: Fair - Discharge Instructions Follow Up With: Mariano Quintero MD [Primary Care Provider] - - Diet and Activity Activity: increase activity as tolerated
[2019-04-20 11:38] VITALS: BP 107/67
--- NOTE | 2019-04-22 09:28 | Electrocardiograph Report ---
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
== END 2019-04-20 12:44 | disposition home or self-care (01) ==
LOC: 3ANU 16:59 → EMEROOARM 16:59 → 3ANU 22:09
PROVIDERS: ADMIT Pediatrics; ATTEND Pediatrics

== ENCOUNTER 2019-10-29 23:39 | Inpatient (IN) ==
[2019-10-30 00:47] LABS: Basophils % 0.3 %; Eosinophils # 0.1 K/mcL (0.0-0.6); Eosinophils % 0.4 %; Hematocrit 45.5 % (37.5-50.1); Hemoglobin 14.4 g/dL (12.9-16.9); Immature Granulocytes % 0.6 % (0-4); Lymphocytes # 1.6 K/mcL (0.6-4.6); Lymphocytes % 12.5 %; Mean Corpuscular HGB Conc 31.6 g/dL (31.6-35.5); Mean Corpuscular Hemoglobin 26.9 pg (28.0-33.3); Mean Corpuscular Volume 84.9 fL (83.0-100.0); Mean Platelet Volume 10.9 fL (9.4-12.4); Neutrophils # 10.2 K/mcL (1.6-8.9); Nucleated Red Blood Cells 0.2 /100 WBC (0); Platelet Count 282 K/mcL (140-400); Red Blood Count 5.36 M/mcL (4.19-5.50); Red Cell Distribution Width 19.8 % (11.5-14.5); Segmented Neutrophils % 78.2 %
[2019-10-30 01:06] LABS: Calcium 9.6 mg/dL (8.6-10.3); Potassium 6.2 mEq/L (3.5-5.1)
[2019-10-30 03:27] LABS: Albumin 3.7 g/dL (3.5-5.7); Albumin/Globulin Ratio 1.5 (1.1-2.2); Bilirubin,Direct 0.5 mg/dL (0.0-0.2); Bilirubin,Indirect 0.9 mg/dL (0.0-1.0); Bilirubin,Total 1.4 mg/dL (0.3-1.0); Globulin 2.5 g/dL (2.4-3.5); Total Protein 6.2 g/dL (6.4-8.9)
[2019-10-30] MEDS ORDERED: 0.9 % Sodium Chloride 500 ML IVC ONE (04:09)
[2019-10-30] MEDS ORDERED: Albuterol 2.5 MG/3 ML NEBULIZER IH ONE ×2 (04:37→06:29)
[2019-10-30 04:57] LABS: Bilirubin,Urine Negative (Negative); Blood,Urine Negative (Negative); Clarity,Urine Cloudy (Clear); Color,Urine Yellow (Yellow); Glucose,Urine (UA) Normal (Normal); Ketones,Urine Negative (Negative); Leukocyte Esterase,Urine Negative (Negative); Nitrite,Urine Negative (Negative); Protein,Urine Trace mg/dL (Neg-Trace); Specific Gravity,Urine 1.015 (1.010-1.025); Urobilinogen,Urine Normal (Normal)
[2019-10-30 04:58] LABS: Bacteria,Urine None Seen per hpf (None-Few); Hyaline Casts,Urine Few per lpf (None-Few)
[2019-10-30 05:18] LABS: RBC,Urine 0-3 per hpf (0-3); Squamous Epithelial Cell,Urine Few per lpf (None-Few); WBC,Urine 0-3 per hpf (0-3)
[2019-10-30 05:57] LABS: INR 1.5; Prothrombin Time 17.3 Seconds (9.4-12.1)
[2019-10-30 06:00] LABS: Activated Partial Thrombo Time 37.7 Seconds (26.0-36.0)
[2019-10-30] MEDS ORDERED: Naloxone 0.4 MG/ML INJ IVP PRN (06:15)
[2019-10-30] MEDS ORDERED: Calcium Gluconate 1gm/50mL 1 GM/50 ML BAG IVPB ONE (06:18)
[2019-10-30] MEDS ORDERED: 0.9 % Sodium Chloride 500 ML ONE (06:35)
[2019-10-30] MEDS ORDERED: *HR* Dextrose 50 % in Water (Syg) 50 ML SYRINGE IVP PRN (06:47)
[2019-10-30] MEDS ORDERED: Dextrose Gel 15 GM/37.5 ML TUBE PO PRN ×2 (06:47)
[2019-10-30] MEDS ORDERED: D5% in Water 1,000 ML IVC PRN (06:47)
[2019-10-30] MEDS ORDERED: Benzonatate 100 MG CAPSULE PO PRN (06:51)
[2019-10-30 07:47] LABS: Calcium 9.3 mg/dL (8.6-10.3); Potassium 5.7 mEq/L (3.5-5.1)
[2019-10-30 08:27] LABS: Basophils % 0.2 %; Eosinophils % 0.2 %; Hematocrit 45.8 % (37.5-50.1); Hemoglobin 14.4 g/dL (12.9-16.9); Immature Granulocytes % 0.7 % (0-4); Lymphocytes # 1.2 K/mcL (0.6-4.6); Lymphocytes % 9.6 %; Mean Corpuscular HGB Conc 31.4 g/dL (31.6-35.5); Mean Corpuscular Hemoglobin 26.9 pg (28.0-33.3); Mean Corpuscular Volume 85.6 fL (83.0-100.0); Mean Platelet Volume 10.8 fL (9.4-12.4); Monocytes # 0.9 K/mcL (0.0-1.3); Monocytes % 7.5 %; Platelet Count 263 K/mcL (140-400); Red Blood Count 5.35 M/mcL (4.19-5.50); Red Cell Distribution Width 19.7 % (11.5-14.5); Segmented Neutrophils % 81.8 %; White Blood Count 12.2 K/mcL (4.3-11.1)
[2019-10-30] MEDS ORDERED: 0.9 % Sodium Chloride 1,000 ML IVC SCH (13:00)
[2019-10-30] MEDS: Insulin LISPRO 300 UNITS/3 ML VIAL SQ SCH ×2 (13:02→16:10)
[2019-10-30 15:16] LABS: Calcium 9.2 mg/dL (8.6-10.3); Potassium 4.8 mEq/L (3.5-5.1)
[2019-10-30] MEDS ORDERED: Furosemide 40 MG TABLET PO SCH (17:00)
[2019-10-30] MEDS ORDERED: *HR* Warfarin 4 MG TABLET PO ONE (18:00)
[2019-10-30] MEDS ORDERED: Warfarin perPT PO PRN (18:00)
[2019-10-30 21:45] LABS: Calcium 9.2 mg/dL (8.6-10.3); Potassium 4.8 mEq/L (3.5-5.1)
[2019-10-31] MEDS: Insulin LISPRO 300 UNITS/3 ML VIAL SQ SCH ×5 (02:20→20:20)
[2019-10-31 03:17] LABS: Basophils % 0.4 %; Eosinophils # 0.1 K/mcL (0.0-0.6); Eosinophils % 0.9 %; Hematocrit 44.2 % (37.5-50.1); Hemoglobin 14.3 g/dL (12.9-16.9); Immature Granulocytes % 0.7 % (0-4); Lymphocytes # 1.1 K/mcL (0.6-4.6); Mean Corpuscular HGB Conc 32.4 g/dL (31.6-35.5); Mean Corpuscular Hemoglobin 26.8 pg (28.0-33.3); Mean Corpuscular Volume 82.8 fL (83.0-100.0); Mean Platelet Volume 10.6 fL (9.4-12.4); Monocytes # 0.9 K/mcL (0.0-1.3); Monocytes % 8.4 %; Platelet Count 232 K/mcL (140-400); Red Blood Count 5.34 M/mcL (4.19-5.50); Red Cell Distribution Width 19.7 % (11.5-14.5); Segmented Neutrophils % 78.6 %; White Blood Count 10.2 K/mcL (4.3-11.1)
[2019-10-31 03:24] LABS: INR 1.6; Prothrombin Time 17.9 Seconds (9.4-12.1)
[2019-10-31 03:36] LABS: Calcium 9.2 mg/dL (8.6-10.3); Potassium 4.7 mEq/L (3.5-5.1)
[2019-10-31 03:37] LABS: Albumin 3.5 g/dL (3.5-5.7); Calcium 9.2 mg/dL (8.6-10.3); Phosphorous 5.4 mg/dL (2.7-4.5); Potassium 4.6 mEq/L (3.5-5.1)
[2019-10-31] MEDS: PARoxetine 20 MG TABLET PO SCH (07:31)
[2019-10-31] MEDS: Metoprolol XL (24 HR) Succ 25 MG TAB.ER.24H PO SCH (07:31)
[2019-10-31] MEDS: Magnesium Oxide 400 MG TABLET PO SCH (07:32)
[2019-10-31] MEDS: Isosorbide MONOnitrate (24 HR) 30 MG TAB.ER.24H PO SCH (07:32)
[2019-10-31] MEDS: 0.9 % Sodium Chloride 1,000 ML IVC SCH ×2 (10:00→16:58)
[2019-10-31] MEDS ORDERED: *HR* Warfarin 3 MG TABLET PO ONE (18:00)
[2019-11-01] MEDS ORDERED: 0.9 % Sodium Chloride 1,000 ML IVC SCH (04:30)
[2019-11-01 05:05] LABS: Basophils % 0.3 %; Eosinophils # 0.1 K/mcL (0.0-0.6); Eosinophils % 0.9 %; Hematocrit 44.5 % (37.5-50.1); Hemoglobin 14.3 g/dL (12.9-16.9); Immature Granulocytes % 0.7 % (0-4); Lymphocytes % 9.9 %; Mean Corpuscular HGB Conc 32.1 g/dL (31.6-35.5); Mean Corpuscular Hemoglobin 26.5 pg (28.0-33.3); Mean Corpuscular Volume 82.4 fL (83.0-100.0); Mean Platelet Volume 10.7 fL (9.4-12.4); Monocytes # 0.7 K/mcL (0.0-1.3); Monocytes % 7.6 %; Neutrophils # 7.7 K/mcL (1.6-8.9); Platelet Count 228 K/mcL (140-400); Red Cell Distribution Width 19.7 % (11.5-14.5); Segmented Neutrophils % 80.6 %; White Blood Count 9.6 K/mcL (4.3-11.1)
[2019-11-01 05:08] LABS: INR 1.8
[2019-11-01 05:22] LABS: Calcium 9.1 mg/dL (8.6-10.3); Potassium 5.1 mEq/L (3.5-5.1)
[2019-11-01] MEDS: Insulin LISPRO 300 UNITS/3 ML VIAL SQ SCH ×4 (08:09→20:03)
[2019-11-01] MEDS: Magnesium Oxide 400 MG TABLET PO SCH (08:10)
[2019-11-01] MEDS: Aspirin Enteric Coated 81 MG Tablet PO SCH (08:10)
[2019-11-01] MEDS: Cholecalciferol (D-3) 1,000 UNIT (25MCG) TABLET PO SCH (08:10)
[2019-11-01] MEDS: PARoxetine 20 MG TABLET PO SCH (08:11)
[2019-11-01] MEDS ORDERED: Sodium Bicarbonate 100 MEQ in 0.45 % Sodium Chloride 1,000 ML IVC SCH (09:30)
[2019-11-01] MEDS: Metoprolol XL (24 HR) Succ 25 MG TAB.ER.24H PO SCH (11:41)
[2019-11-01] MEDS: Isosorbide MONOnitrate (24 HR) 30 MG TAB.ER.24H PO SCH (11:41)
[2019-11-01] MEDS ORDERED: Albumin 25% 25gram/100mL 25 GM/100 ML IV.SOLN IVPB ONE (15:53)
[2019-11-01] MEDS ORDERED: *HR* Warfarin 4 MG TABLET PO ONE (18:00)
[2019-11-01] MEDS: Melatonin 3 MG TABLET PO PRN (20:07)
[2019-11-02] MEDS ORDERED: Ringers Solution, Lactated 1,000 ML IVC SCH (00:15)
[2019-11-02 06:44] LABS: INR 2.1; Prothrombin Time 23.7 Seconds (9.4-12.1)
[2019-11-02 07:02] LABS: Calcium 8.6 mg/dL (8.6-10.3); Potassium 4.2 mEq/L (3.5-5.1)
[2019-11-02 07:23] LABS: Basophils % 0.5 %; Eosinophils # 0.1 K/mcL (0.0-0.6); Hemoglobin 13.4 g/dL (12.9-16.9); Immature Granulocytes % 0.7 % (0-4); Lymphocytes # 1.1 K/mcL (0.6-4.6); Lymphocytes % 12.9 %; Mean Corpuscular HGB Conc 31.9 g/dL (31.6-35.5); Mean Corpuscular Hemoglobin 26.4 pg (28.0-33.3); Mean Corpuscular Volume 82.8 fL (83.0-100.0); Monocytes # 0.9 K/mcL (0.0-1.3); Monocytes % 10.6 %; Neutrophils # 6.2 K/mcL (1.6-8.9); Platelet Count 175 K/mcL (140-400); Red Blood Count 5.07 M/mcL (4.19-5.50); Segmented Neutrophils % 74.3 %; White Blood Count 8.4 K/mcL (4.3-11.1)
[2019-11-02] MEDS: Insulin LISPRO 300 UNITS/3 ML VIAL SQ SCH ×4 (08:41→21:12)
[2019-11-02] MEDS: Isosorbide MONOnitrate (24 HR) 30 MG TAB.ER.24H PO SCH (09:17)
[2019-11-02] MEDS: Metoprolol XL (24 HR) Succ 25 MG TAB.ER.24H PO SCH (09:17)
[2019-11-02] MEDS: Aspirin Enteric Coated 81 MG Tablet PO SCH (09:23)
[2019-11-02] MEDS: Magnesium Oxide 400 MG TABLET PO SCH (09:23)
[2019-11-02] MEDS: Cholecalciferol (D-3) 1,000 UNIT (25MCG) TABLET PO SCH (09:23)
[2019-11-02] MEDS: PARoxetine 20 MG TABLET PO SCH (09:24)
[2019-11-02] MEDS ORDERED: Furosemide 40 MG/4 ML VIAL IVP ONE (10:20)
[2019-11-02 17:05] LABS: Chol/HDL Ratio 2.5 (0-4.9)
[2019-11-02] MEDS ORDERED: *HR* Warfarin 4 MG TABLET PO ONE (18:00)
[2019-11-02] MEDS: Melatonin 3 MG TABLET PO PRN (21:12)
[2019-11-03 04:56] LABS: INR 2.3; Prothrombin Time 26.4 Seconds (9.4-12.1)
[2019-11-03 05:05] LABS: Calcium 8.8 mg/dL (8.6-10.3); Potassium 4.3 mEq/L (3.5-5.1)
[2019-11-03 07:24] VITALS: BP 94/54
[2019-11-03] MEDS: Cholecalciferol (D-3) 1,000 UNIT (25MCG) TABLET PO SCH (08:42)
[2019-11-03] MEDS: Insulin LISPRO 300 UNITS/3 ML VIAL SQ SCH (08:42)
[2019-11-03] MEDS: Isosorbide MONOnitrate (24 HR) 30 MG TAB.ER.24H PO SCH (08:43)
[2019-11-03] MEDS: PARoxetine 20 MG TABLET PO SCH (08:43)
[2019-11-03] MEDS: Metoprolol XL (24 HR) Succ 25 MG TAB.ER.24H PO SCH (08:43)
[2019-11-03] MEDS: Magnesium Oxide 400 MG TABLET PO SCH (08:43)
[2019-11-03] MEDS: Aspirin Enteric Coated 81 MG Tablet PO SCH (08:43)
[2019-11-07 01:12] LABS: Alpha 2 Globulin (PEP) 0.74 g/dL (0.48-1.05); Beta Globulin (PEP) 0.74 g/dL (0.48-1.10)
[2019-11-07 07:21] LABS: IFE Reflexed IFE Done; Immunoglobulin G 560 mg/dL (768-1632); Immunoglobulin M 10 mg/dL (35-263)
[2019-11-07 07:22] LABS: Immunoglobulin A 174 mg/dL (68-408)
== END 2019-11-03 10:37 | disposition home or self-care (01) | DRG 422 ==
LOC: 2ANU 23:39 → EMEROOARM 23:39 → SUATTDRO 10-30 05:07 → 2ANU 10-30 06:41
PROVIDERS: ADMIT Family Medicine; ATTEND Internal Medicine

== ENCOUNTER 2020-09-14 11:27 | Inpatient (IN) ==
[2020-09-14] MEDS ORDERED: *HR* Dextrose 50 % in Water (Syg) 50 ML SYRINGE IVP STA (14:28)
[2020-09-14] MEDS ORDERED: Naloxone 0.4 MG/ML INJ IVP PRN (14:49)
[2020-09-14] MEDS ORDERED: Ondansetron 4 MG/2 ML VIAL IVP PRN (14:49)
[2020-09-14] MEDS ORDERED: Dextrose Gel 15 GM/37.5 ML TUBE PO PRN ×2 (14:55)
[2020-09-14] MEDS ORDERED: D5% in Water 1,000 ML IVC PRN (14:55)
[2020-09-14] MEDS ORDERED: Ipratropium/Albuterol Neb 3 ML IH PRN (14:57)
[2020-09-14] MEDS ORDERED: Albumin Human 5% 12.5 GM/250 ML IV.SOLN IVPB SCH (15:00)
[2020-09-14 15:30] LABS: ABG Base Excess -6 mEq/L (-2 to 3); ABG HCO3 17 mEq/L (21-27); ABG Oxygen Saturation 97 % (95-98); ABG PCO2 25 mmHg (35-45); ABG PH 7.43 pH Units (7.32-7.45); ABG PO2 87 mmHg (85-104); ABG TCO2 17 mEq/L (20-26)
[2020-09-14] MEDS ORDERED: D5% in 0.9% NACL 1,000 ML IVC SCH (15:30)
[2020-09-14] MEDS: cefTRIAXone 2,000 MG in Water for inj. (sterile) 20 ML IVP SCH (15:36)
[2020-09-14] MEDS ORDERED: *HR* Labetalol 20 MG/4 ML SYRINGE IVP PRN (16:09)
[2020-09-14] MEDS: Insulin LISPRO 300 UNITS/3 ML VIAL SUBQ SCH ×2 (16:35→20:58)
[2020-09-14] MEDS ORDERED: D10% in Water 500 ML IVC SCH ×3 (16:45→23:27)
[2020-09-14] MEDS ORDERED: 0.9 % Sodium Chloride 1,000 ML IVC SCH ×2 (17:00)
[2020-09-14] MEDS ORDERED: Insulin LISPRO 300 UNITS/3 ML VIAL SUBQ SCH (18:00)
[2020-09-14] MEDS: *HR* Dextrose 50 % in Water (Vial) 50 ML VIAL IVP PRN ×2 (18:12→22:27)
[2020-09-14 19:08] LABS: Amphetamine Screen,Urine Negative ng/mL (Cutoff=1000); Barbiturate Screen,Urine Negative ng/mL (Cutoff=200); Benzodiazepines Screen,Urine Negative ng/mL (Cutoff=200); Cannabinoid Screen,Urine Negative ng/mL (Cutoff = 50); Cocaine Screen,Urine Negative ng/mL (Cutoff= 300); Opiate Screen,Urine Negative ng/mL (Cutoff=300); Phencyclidine Screen,Urine Negative ng/mL (Cutoff=25)
[2020-09-14 19:09] LABS: Chloride,Urine 19 mEq/L; Potassium,Urine 44.6 mEq/L; Sodium, Urine < 10.0 mEq/L
[2020-09-14] MEDS: Lactulose Oral Soln 20 GM/30 ML UDC PO SCH (20:41)
[2020-09-15 04:30] LABS: Basophils % 0.3 %; Eosinophils # 0.1 K/mcL (0.0-0.6); Eosinophils % 1.3 %; Hematocrit 39.6 % (37.5-50.1); Hemoglobin 12.6 g/dL (12.9-16.9); INR 3.8; Immature Granulocytes % 0.9 % (0-4); Lymphocytes # 0.5 K/mcL (0.6-4.6); Lymphocytes % 4.8 %; Mean Corpuscular HGB Conc 31.8 g/dL (31.6-35.5); Mean Corpuscular Hemoglobin 25.5 pg (28.0-33.3); Mean Corpuscular Volume 80.2 fL (83.0-100.0); Monocytes # 1.3 K/mcL (0.0-1.3); Monocytes % 12.6 %; Neutrophils # 8.5 K/mcL (1.6-8.9); Platelet Count 240 K/mcL (140-400); Red Blood Count 4.94 M/mcL (4.19-5.50); Red Cell Distribution Width 18.9 % (11.5-14.5); Segmented Neutrophils % 80.1 %; White Blood Count 10.6 K/mcL (4.3-11.1)
[2020-09-15 04:33] LABS: Activated Partial Thrombo Time 42.6 Seconds (26.0-36.0)
[2020-09-15] MEDS: *HR* Dextrose 50 % in Water (Vial) 50 ML VIAL IVP PRN (04:42)
[2020-09-15 04:47] LABS: Acetaminophen < 10 mcg/mL (10-20); Salicylate < 2.5 mg/dL (15.0-30.0)
[2020-09-15 05:03] LABS: Albumin 2.6 g/dL (3.5-5.7); Bilirubin,Total 2.3 mg/dL (0.3-1.0); Calcium 7.8 mg/dL (8.6-10.3); Globulin 2.7 g/dL (2.4-3.5); Phosphorous 3.6 mg/dL (2.7-4.5); Potassium 5.1 mEq/L (3.5-5.1); Total Protein 5.3 g/dL (6.4-8.9)
[2020-09-15] MEDS ORDERED: D5% in 0.9% NACL 1,000 ML IVC SCH (08:00)
[2020-09-15] MEDS: Insulin LISPRO 300 UNITS/3 ML VIAL SUBQ SCH ×4 (08:37→21:00)
[2020-09-15] MEDS: Magnesium Oxide 400 MG TABLET PO SCH (08:45)
[2020-09-15] MEDS: Lactulose Oral Soln 20 GM/30 ML UDC PO SCH ×2 (08:45→23:01)
[2020-09-15] MEDS: PARoxetine 20 MG TABLET PO SCH (08:45)
[2020-09-15] MEDS: BuPROPion XL (24 HR) 150 MG TABLET PO SCH (08:45)
[2020-09-15] MEDS: Aspirin Enteric Coated 81 MG Tablet PO SCH (08:45)
[2020-09-15] MEDS: Albumin 25% 25gram/100mL 25 GM/100 ML IV.SOLN IVC SCH ×4 (08:45→13:57)
[2020-09-15] MEDS ORDERED: NON-FORMULARY MEDICATION 1 EACH EACH (Midodrine Hcl 2.5 MG) PO SCH (09:00)
[2020-09-15] MEDS: Metoprolol XL (24 HR) Succ 25 MG TAB.ER.24H PO SCH (10:07)
[2020-09-15] MEDS: cefTRIAXone 2,000 MG in Water for inj. (sterile) 20 ML IVP SCH (15:14)
[2020-09-15] MEDS: allopurinoL 300 MG TABLET PO SCH (18:30)
[2020-09-15] MEDS: Melatonin 3 MG TABLET PO SCH (23:01)
[2020-09-16 02:08] LABS: Basophils % 0.3 %; Eosinophils # 0.1 K/mcL (0.0-0.6); Eosinophils % 1.1 %; Hematocrit 32.4 % (37.5-50.1); Immature Granulocytes % 0.9 % (0-4); Lymphocytes # 0.3 K/mcL (0.6-4.6); Lymphocytes % 3.9 %; Mean Corpuscular HGB Conc 30.2 g/dL (31.6-35.5); Mean Corpuscular Volume 82.7 fL (83.0-100.0); Mean Platelet Volume 11.2 fL (9.4-12.4); Monocytes # 0.6 K/mcL (0.0-1.3); Monocytes % 8.1 %; Neutrophils # 6.8 K/mcL (1.6-8.9); Platelet Count 157 K/mcL (140-400); Red Blood Count 3.92 M/mcL (4.19-5.50); Red Cell Distribution Width 19.2 % (11.5-14.5); Segmented Neutrophils % 85.7 %; White Blood Count 7.9 K/mcL (4.3-11.1)
[2020-09-16 02:14] LABS: Hemoglobin 9.8 g/dL (12.9-16.9)
[2020-09-16 03:40] LABS: Calcium 7.3 mg/dL (8.6-10.3); Magnesium 1.9 mg/dL (1.6-2.6); Phosphorous 3.4 mg/dL (2.7-4.5); Potassium 3.7 mEq/L (3.5-5.1)
[2020-09-16 07:27] LABS: Calcium 8.1 mg/dL (8.6-10.3)
[2020-09-16] MEDS ORDERED: D5% in 0.9% NACL 1,000 ML IVC SCH (07:30)
[2020-09-16] MEDS ORDERED: Vancomycin 1,750 MG/517.5 ML IV.SOLN IVPB ONE (08:00)
[2020-09-16] MEDS: 0.9 % Sodium Chloride 1,000 ML IVC SCH ×2 (08:44→09:53)
[2020-09-16] MEDS: Aspirin Enteric Coated 81 MG Tablet PO SCH (08:58)
[2020-09-16] MEDS: Magnesium Oxide 400 MG TABLET PO SCH (08:58)
[2020-09-16] MEDS: BuPROPion XL (24 HR) 150 MG TABLET PO SCH (08:58)
[2020-09-16] MEDS: Metoprolol XL (24 HR) Succ 25 MG TAB.ER.24H PO SCH (08:59)
[2020-09-16] MEDS: Lactulose Oral Soln 20 GM/30 ML UDC PO SCH ×2 (08:59→20:02)
[2020-09-16] MEDS: PARoxetine 20 MG TABLET PO SCH (08:59)
[2020-09-16] MEDS: Insulin LISPRO 300 UNITS/3 ML VIAL SUBQ SCH ×4 (09:01→20:02)
[2020-09-16 12:02] LABS: INR 4.8; Prothrombin Time 53.4 Seconds (9.4-12.1)
[2020-09-16] MEDS: cefTRIAXone 2,000 MG in Water for inj. (sterile) 20 ML IVP SCH (15:04)
[2020-09-16] MEDS: allopurinoL 300 MG TABLET PO SCH (17:46)
[2020-09-16] MEDS: Melatonin 3 MG TABLET PO SCH (20:01)
[2020-09-17 00:43] LABS: Creatinine,Urine 56 mg/dL; Potassium,Urine 34.3 mEq/L; Sodium, Urine < 10.0 mEq/L
[2020-09-17 03:19] LABS: Basophils % 0.3 %; Eosinophils # 0.1 K/mcL (0.0-0.6); Eosinophils % 1.1 %; Hematocrit 38.3 % (37.5-50.1); Immature Granulocytes % 1.2 % (0-4); Lymphocytes # 0.4 K/mcL (0.6-4.6); Lymphocytes % 4.5 %; Mean Corpuscular HGB Conc 30.8 g/dL (31.6-35.5); Mean Corpuscular Hemoglobin 24.9 pg (28.0-33.3); Monocytes # 0.8 K/mcL (0.0-1.3); Monocytes % 7.9 %; Neutrophils # 8.3 K/mcL (1.6-8.9); Platelet Count 212 K/mcL (140-400); Red Blood Count 4.73 M/mcL (4.19-5.50); Red Cell Distribution Width 19.4 % (11.5-14.5); White Blood Count 9.8 K/mcL (4.3-11.1)
[2020-09-17 03:29] LABS: Hemoglobin 11.8 g/dL (12.9-16.9)
[2020-09-17 03:35] LABS: Calcium 8.1 mg/dL (8.6-10.3); Magnesium 2.2 mg/dL (1.6-2.6); Phosphorous 3.5 mg/dL (2.7-4.5); Potassium 3.4 mEq/L (3.5-5.1)
[2020-09-17] MEDS ORDERED: Potassium Chloride 40 MEQ, Lidocaine 1% 2 ML in 0.9 % Sodium Chloride 500 ML IVPB ONE (05:00)
[2020-09-17 05:31] LABS: VBG Ionized Calcium 1.06 mmol/L (1.15-1.35)
[2020-09-17] MEDS ORDERED: Vancomycin 1,500 MG/265 ML IV.SOLN IVPB SCH (08:00)
[2020-09-17 08:03] LABS: INR 4.6; Prothrombin Time 50.5 Seconds (9.4-12.1)
[2020-09-17] MEDS ORDERED: Perflutren Lipid Microsphere 1.3 ML in 0.9 % Sodium Chloride 8.7 ML IVP PRN (08:03)
[2020-09-17] MEDS: BuPROPion XL (24 HR) 150 MG TABLET PO SCH (09:13)
[2020-09-17] MEDS: Magnesium Oxide 400 MG TABLET PO SCH (09:13)
[2020-09-17] MEDS: PARoxetine 20 MG TABLET PO SCH (09:13)
[2020-09-17] MEDS: Aspirin Enteric Coated 81 MG Tablet PO SCH (09:13)
[2020-09-17] MEDS: Metoprolol XL (24 HR) Succ 25 MG TAB.ER.24H PO SCH (09:13)
[2020-09-17] MEDS: Lactulose Oral Soln 20 GM/30 ML UDC PO SCH ×2 (09:14→21:27)
[2020-09-17] MEDS: CeFAZolin 2 GM/120 ML BAG IVPB SCH ×2 (09:29→17:01)
[2020-09-17] MEDS ORDERED: *HR* Phytonadione 10 MG/ML AMPUL SQ ONE (11:18)
[2020-09-17] MEDS: Insulin LISPRO 300 UNITS/3 ML VIAL SUBQ SCH ×4 (11:21→21:25)
[2020-09-17] MEDS ORDERED: 0.9 % Sodium Chloride 250 ML IVC SCH (11:30)
[2020-09-17] MEDS: allopurinoL 300 MG TABLET PO SCH (17:33)
[2020-09-17] MEDS: Melatonin 3 MG TABLET PO SCH (21:27)
[2020-09-18] MEDS: CeFAZolin 2 GM/120 ML BAG IVPB SCH ×3 (00:53→16:35)
[2020-09-18 01:05] LABS: Basophils % 0.3 %; Eosinophils # 0.1 K/mcL (0.0-0.6); Eosinophils % 0.9 %; Hematocrit 39.9 % (37.5-50.1); Hemoglobin 12.2 g/dL (12.9-16.9); Immature Granulocytes % 1.4 % (0-4); Lymphocytes # 0.7 K/mcL (0.6-4.6); Lymphocytes % 5.4 %; Mean Corpuscular HGB Conc 30.6 g/dL (31.6-35.5); Mean Corpuscular Hemoglobin 24.8 pg (28.0-33.3); Mean Corpuscular Volume 81.1 fL (83.0-100.0); Mean Platelet Volume 10.9 fL (9.4-12.4); Monocytes # 1.1 K/mcL (0.0-1.3); Monocytes % 8.6 %; Neutrophils # 10.7 K/mcL (1.6-8.9); Platelet Count 267 K/mcL (140-400); Red Blood Count 4.92 M/mcL (4.19-5.50); Red Cell Distribution Width 19.4 % (11.5-14.5); Segmented Neutrophils % 83.4 %; White Blood Count 12.8 K/mcL (4.3-11.1)
[2020-09-18 01:12] LABS: INR 2.6; Prothrombin Time 29.5 Seconds (9.4-12.1)
[2020-09-18 01:24] LABS: Magnesium 2.2 mg/dL (1.6-2.6); Phosphorous 3.8 mg/dL (2.7-4.5)
[2020-09-18 07:51] LABS: Calcium 8.5 mg/dL (8.6-10.3); Potassium 3.7 mEq/L (3.5-5.1)
[2020-09-18] MEDS ORDERED: *HR* Midazolam HCl 5 MG/5 ML VIAL IVP PRN (08:26)
[2020-09-18] MEDS ORDERED: 0.9 % Sodium Chloride 500 ML IVC ONE (08:26)
[2020-09-18] MEDS ORDERED: Lidocaine Viscous Oral Soln 15 ML SOLUTION MM PRN (08:26)
[2020-09-18 08:42] LABS: Albumin 3.3 g/dL (3.5-5.7)
[2020-09-18] MEDS: *HR* FentaNYL (PF) 100 MCG/2 ML VIAL IVP PRN ×2 (09:00→09:10)
[2020-09-18] MEDS: Insulin LISPRO 300 UNITS/3 ML VIAL SUBQ SCH ×4 (10:04→21:05)
[2020-09-18 11:45] LABS: Source of Body Fluid right shoulder
[2020-09-18 12:32] LABS: RBC,Peritoneal Fluid < 2000 RBC/mcL
[2020-09-18] MEDS ORDERED: D5% in 0.9% NACL 1,000 ML IVC SCH ×2 (12:45→15:25)
[2020-09-18] MEDS: BuPROPion XL (24 HR) 150 MG TABLET PO SCH (12:48)
[2020-09-18] MEDS: Magnesium Oxide 400 MG TABLET PO SCH (12:48)
[2020-09-18] MEDS: PARoxetine 20 MG TABLET PO SCH (12:48)
[2020-09-18] MEDS: Aspirin Enteric Coated 81 MG Tablet PO SCH (12:48)
[2020-09-18] MEDS: Lactulose Oral Soln 20 GM/30 ML UDC PO SCH ×2 (12:48→21:04)
[2020-09-18] MEDS: Metoprolol XL (24 HR) Succ 25 MG TAB.ER.24H PO SCH (12:49)
[2020-09-18 12:51] LABS: Amylase,Peritoneal Fluid < 10 Units/L (No Ref Range); Glucose,Peritoneal Fluid 88 mg/dL (No Ref Range); LDH,Peritoneal Fluid 74 Units/L (No Ref Range); Total Protein,Peritoneal Fluid < 2.0 g/dL
[2020-09-18 13:47] LABS: Appearance of Peritoneal Fl CLEAR (Clear); Basophils,Peritoneal Fluid 0 %; Eosinophils,Peritoneal Fluid 0 %
[2020-09-18 13:54] LABS: Appearance of Body Fluid Cloudy (Clear); Volume of Body Fluid 5 mL
[2020-09-18] MEDS: Albumin 25% 25gram/100mL 25 GM/100 ML IV.SOLN IVPB SCH (19:14)
[2020-09-18] MEDS: allopurinoL 300 MG TABLET PO SCH (19:15)
[2020-09-18] MEDS: Melatonin 3 MG TABLET PO SCH (21:04)
[2020-09-19] MEDS: Albumin 25% 25gram/100mL 25 GM/100 ML IV.SOLN IVPB SCH ×2 (00:12→08:20)
[2020-09-19] MEDS: CeFAZolin 2 GM/120 ML BAG IVPB SCH ×4 (00:13→23:28)
[2020-09-19 04:51] LABS: Basophils # 0.1 K/mcL (0.0-0.2); Basophils % 0.4 %; Eosinophils # 0.1 K/mcL (0.0-0.6); Eosinophils % 0.8 %; Hematocrit 40.1 % (37.5-50.1); Hemoglobin 12.3 g/dL (12.9-16.9); Immature Granulocytes % 1.4 % (0-4); Lymphocytes # 0.7 K/mcL (0.6-4.6); Lymphocytes % 6.1 %; Mean Corpuscular HGB Conc 30.7 g/dL (31.6-35.5); Mean Corpuscular Hemoglobin 25.5 pg (28.0-33.3); Mean Platelet Volume 9.4 fL (9.4-12.4); Monocytes # 0.9 K/mcL (0.0-1.3); Monocytes % 7.6 %; Platelet Count 199 K/mcL (140-400); Red Blood Count 4.83 M/mcL (4.19-5.50); Red Cell Distribution Width 19.9 % (11.5-14.5); Segmented Neutrophils % 83.7 %; White Blood Count 11.9 K/mcL (4.3-11.1)
[2020-09-19 05:11] LABS: Calcium 8.5 mg/dL (8.6-10.3); Magnesium 2.2 mg/dL (1.6-2.6); Phosphorous 3.7 mg/dL (2.7-4.5); Potassium 2.9 mEq/L (3.5-5.1)
[2020-09-19] MEDS: BuPROPion XL (24 HR) 150 MG TABLET PO SCH (08:16)
[2020-09-19] MEDS: Lactulose Oral Soln 20 GM/30 ML UDC PO SCH ×2 (08:16→21:26)
[2020-09-19] MEDS: Aspirin Enteric Coated 81 MG Tablet PO SCH (08:16)
[2020-09-19] MEDS: Magnesium Oxide 400 MG TABLET PO SCH (08:16)
[2020-09-19] MEDS: Insulin LISPRO 300 UNITS/3 ML VIAL SUBQ SCH ×4 (08:17→21:12)
[2020-09-19] MEDS: PARoxetine 20 MG TABLET PO SCH (08:17)
[2020-09-19] MEDS: Metoprolol XL (24 HR) Succ 25 MG TAB.ER.24H PO SCH (08:17)
[2020-09-19] MEDS ORDERED: Spironolactone 12.5 MG TABLET PO SCH (09:00)
[2020-09-19] MEDS ORDERED: *HR* Midazolam HCl 2 MG/2 ML VIAL IVP ONE (11:02)
[2020-09-19] MEDS ORDERED: *HR* FentaNYL (PF) 100 MCG/2 ML VIAL IVP ONE (11:02)
[2020-09-19] MEDS ORDERED: 0.9 % Sodium Chloride 500 ML ONE (11:18)
[2020-09-19] MEDS ORDERED: Furosemide 20 MG/2 ML VIAL IVP SCH (12:00)
[2020-09-19 15:29] LABS: INR 1.9; Prothrombin Time 21.4 Seconds (9.4-12.1)
[2020-09-19] MEDS: allopurinoL 300 MG TABLET PO SCH (16:37)
[2020-09-19] MEDS ORDERED: *HR* Warfarin 2 MG TABLET PO ONE (18:00)
[2020-09-19] MEDS ORDERED: Warfarin perPT PO SCH (18:00)
[2020-09-19] MEDS: Melatonin 3 MG TABLET PO SCH (21:27)
[2020-09-20] MEDS ORDERED: *HR* LORazepam 2 MG/ML VIAL IVP ONE ×2 (04:13→18:14)
[2020-09-20 04:43] LABS: Basophils # 0.1 K/mcL (0.0-0.2); Basophils % 0.4 %; Eosinophils # 0.1 K/mcL (0.0-0.6); Hematocrit 40.2 % (37.5-50.1); Hemoglobin 12.6 g/dL (12.9-16.9); Immature Granulocytes % 2.2 % (0-4); Lymphocytes # 0.5 K/mcL (0.6-4.6); Lymphocytes % 3.9 %; Mean Corpuscular HGB Conc 31.3 g/dL (31.6-35.5); Mean Corpuscular Hemoglobin 25.8 pg (28.0-33.3); Mean Corpuscular Volume 82.2 fL (83.0-100.0); Monocytes # 0.9 K/mcL (0.0-1.3); Monocytes % 6.6 %; Neutrophils # 11.1 K/mcL (1.6-8.9); Platelet Count 207 K/mcL (140-400); Red Blood Count 4.89 M/mcL (4.19-5.50); Red Cell Distribution Width 19.9 % (11.5-14.5); Segmented Neutrophils % 85.9 %; White Blood Count 12.9 K/mcL (4.3-11.1)
[2020-09-20 04:46] LABS: INR 1.7; Prothrombin Time 19.3 Seconds (9.4-12.1)
[2020-09-20 05:01] LABS: Calcium 8.6 mg/dL (8.6-10.3); Magnesium 2.4 mg/dL (1.6-2.6); Phosphorous 2.9 mg/dL (2.7-4.5); Potassium 2.7 mEq/L (3.5-5.1)
[2020-09-20] MEDS: Insulin LISPRO 300 UNITS/3 ML VIAL SUBQ SCH ×2 (07:58→11:22)
[2020-09-20] MEDS: Lactulose Oral Soln 20 GM/30 ML UDC PO SCH (08:51)
[2020-09-20] MEDS: PARoxetine 20 MG TABLET PO SCH (08:52)
[2020-09-20] MEDS: Magnesium Oxide 400 MG TABLET PO SCH (08:52)
[2020-09-20] MEDS: BuPROPion XL (24 HR) 150 MG TABLET PO SCH (08:53)
[2020-09-20] MEDS: Aspirin Enteric Coated 81 MG Tablet PO SCH (08:53)
[2020-09-20] MEDS: CeFAZolin 2 GM/120 ML BAG IVPB SCH (08:53)
[2020-09-20] MEDS ORDERED: Saliva Stimulant 44.3ml BOTTLE PO PRN ×2 (11:53→18:14)
[2020-09-20] MEDS ORDERED: Perflutren Lipid Microsphere 1.3 ML in 0.9 % Sodium Chloride 8.7 ML IVP PRN ×3 (12:51→19:31)
[2020-09-20] MEDS ORDERED: MethylPREDNISolone Acet(DEPOT) 80 MG/ML VIAL ONE (14:56)
[2020-09-20] MEDS ORDERED: Ondansetron 4 MG/2 ML VIAL ONE (15:01)
[2020-09-20] MEDS ORDERED: *HR* Propofol 200 MG/20 ML VIAL IVP ONE (15:01)
[2020-09-20] MEDS ORDERED: Lidocaine -MPF 2% 2 ML VIAL ONE ×2 (15:01→17:14)
[2020-09-20] MEDS ORDERED: Dexamethasone 4 MG/ML VIAL ONE (15:01)
[2020-09-20] MEDS ORDERED: *HR* FentaNYL (PF) 100 MCG/2 ML VIAL ONE ×2 (15:01→18:47)
[2020-09-20] MEDS ORDERED: *HR* Midazolam HCl 5 MG/5 ML VIAL IVP ONE (15:14)
[2020-09-20] MEDS ORDERED: *HR* Etomidate 20 MG/10 ML AMPUL IVP ONE (15:14)
[2020-09-20] MEDS ORDERED: *HR* Vasopressin 20 UNIT/ML VIAL ONE (15:50)
[2020-09-20] MEDS ORDERED: *HR* PHENYLEPHRINE 1,000 MCG/10 ML SYRINGE IVP ONE (15:51)
[2020-09-20] MEDS ORDERED: *HR* Etomidate 40 MG/20 ML VIAL IVP ONE (15:51)
[2020-09-20] MEDS ORDERED: *HR* EPINEPHrine 1 MG/10 ML SYRINGE ONE (15:51)
[2020-09-20] MEDS ORDERED: ROPIVACAINE/PF/NS 0.25% 1 EACH SYRINGE INTRAART ONE (17:32)
[2020-09-20] MEDS ORDERED: *HR* Warfarin 4 MG TABLET PO ONE (18:00)
[2020-09-20] MEDS ORDERED: Naloxone 0.4 MG/ML INJ IVP PRN (18:14)
[2020-09-20] MEDS ORDERED: D5% in Water 1,000 ML IVC PRN (18:14)
[2020-09-20] MEDS ORDERED: Ipratropium/Albuterol Neb 3 ML IH PRN (18:14)
[2020-09-20] MEDS ORDERED: Dextrose Gel 15 GM/37.5 ML TUBE PO PRN ×2 (18:14)
[2020-09-20] MEDS ORDERED: *HR* Dextrose 50 % in Water (Vial) 50 ML VIAL IVP PRN (18:14)
[2020-09-20] MEDS ORDERED: Ondansetron 4 MG/2 ML VIAL IVP PRN ×2 (18:14)
[2020-09-20] MEDS ORDERED: Furosemide 40 MG/4 ML VIAL ONE (18:15)
[2020-09-20 18:30] LABS: ABG Base Excess -13 mEq/L (-2 to 3); ABG HCO3 12 mEq/L (21-27); ABG Oxygen Saturation 97 % (95-98); ABG PCO2 27 mmHg (35-45); ABG PH 7.28 pH Units (7.32-7.45); ABG PO2 104 mmHg (85-104); ABG TCO2 13 mEq/L (20-26)
[2020-09-20] MEDS ORDERED: *HR* FentaNYL (PF) 100 MCG/2 ML VIAL IVP ONE (18:45)
[2020-09-20 18:57] LABS: Basophils # 0.1 K/mcL (0.0-0.2); Basophils % 0.5 %; Eosinophils # 0.1 K/mcL (0.0-0.6); Eosinophils % 0.4 %; Hematocrit 40.6 % (37.5-50.1); Hemoglobin 12.3 g/dL (12.9-16.9); INR 1.8; Immature Granulocytes % 2.9 % (0-4); Lymphocytes # 0.4 K/mcL (0.6-4.6); Lymphocytes % 2.4 %; Mean Corpuscular HGB Conc 30.3 g/dL (31.6-35.5); Mean Corpuscular Hemoglobin 24.8 pg (28.0-33.3); Mean Platelet Volume 10.2 fL (9.4-12.4); Monocytes # 0.6 K/mcL (0.0-1.3); Monocytes % 3.8 %; Neutrophils # 14.8 K/mcL (1.6-8.9); Nucleated Red Blood Cells 0.1 /100 WBC (0); Platelet Count 206 K/mcL (140-400); Prothrombin Time 20.1 Seconds (9.4-12.1); Red Blood Count 4.95 M/mcL (4.19-5.50); Red Cell Distribution Width 20.2 % (11.5-14.5); White Blood Count 16.4 K/mcL (4.3-11.1)
[2020-09-20 19:29] LABS: Calcium 8.3 mg/dL (8.6-10.3); Magnesium 2.4 mg/dL (1.6-2.6); Potassium 3.4 mEq/L (3.5-5.1); Troponin I 0.05 ng/mL (< 0.04)
[2020-09-20] MEDS: Norepinephrine 4 MG/254 ML IV.SOLN IVC SCH ×2 (20:26→21:51)
[2020-09-20] MEDS ORDERED: Artificial Tears SOLN 15 ML BOTTLE BOTH EYES PRN (20:26)
[2020-09-20 20:30] LABS: Eosinophils % 0.2 %; Hematocrit 41.6 % (37.5-50.1); Hemoglobin 12.7 g/dL (12.9-16.9); Mean Corpuscular HGB Conc 30.5 g/dL (31.6-35.5); Monocytes % 2.5 %; Red Cell Distribution Width 20.3 % (11.5-14.5); Segmented Neutrophils % 91.6 %
[2020-09-20 20:32] LABS: Basophils # 0.1 K/mcL (0.0-0.2); Basophils % 0.5 %; Immature Granulocytes % 3.1 % (0-4); Immature Platelets 4.3 % (1.1-6.1); Lymphocytes # 0.4 K/mcL (0.6-4.6); Lymphocytes % 2.1 %; Mean Corpuscular Volume 81.7 fL (83.0-100.0); Mean Platelet Volume 10.5 fL (9.4-12.4); Monocytes # 0.4 K/mcL (0.0-1.3); Neutrophils # 15.5 K/mcL (1.6-8.9); Nucleated Red Blood Cells 0.2 /100 WBC (0); Platelet Count 198 K/mcL (140-400); Red Blood Count 5.09 M/mcL (4.19-5.50); White Blood Count 16.9 K/mcL (4.3-11.1)
[2020-09-20] MEDS: Piperacillin/Tazobactam 3.375 GM in 0.9 % Sodium Chloride Mini Bag 100 ML IVPB SCH (20:34)
[2020-09-20] MEDS: Ringers Solution, Lactated 1,000 ML IVC SCH (20:34)
[2020-09-20 20:36] LABS: INR 1.7; Prothrombin Time 19.2 Seconds (9.4-12.1)
[2020-09-20] MEDS: Vasopressin 40 UNIT in D5% in Water 100 ML IVC SCH (20:40)
[2020-09-20] MEDS: FentaNYL (PF) 1,000 MCG/100 ML IV.SOLN IVC SCH (20:49)
[2020-09-20 20:51] LABS: Alanine Aminotransferase < 3 Units/L (7-52); Albumin/Globulin Ratio 1.3 (1.1-2.2); Alkaline Phosphatase 764 Units/L (34-104); Aspartate Amino Transferase 21 Units/L (13-39); BUN/Creatinine Ratio 19 (6-26); Bilirubin,Indirect 0.6 mg/dL (0.0-1.0); Bilirubin,Total 1.6 mg/dL (0.3-1.0); Blood Urea Nitrogen 44 mg/dL (6-20); C-Reactive Protein 102 mg/L (Less than 10); Calcium 8.4 mg/dL (8.6-10.3); Carbon Dioxide 14 mEq/L (23-29); Chloride 111 mEq/L (98-107); Globulin 2.3 g/dL (2.4-3.5); Glucose 83 mg/dL (70-105); Osmolality,Calculated 294 (280-300); Potassium 3.3 mEq/L (3.5-5.1); Sodium 137 mEq/L (136-145); Total Protein 5.3 g/dL (6.4-8.9); eGFR For African Americans 36 (> 60); eGFR For Non-African Americans 30 (> 60)
[2020-09-20 21:00] LABS: ABG Base Excess -12 mEq/L (-2 to 3); ABG HCO3 14 mEq/L (21-27); ABG Oxygen Saturation 100 % (95-98); ABG PCO2 33 mmHg (35-45); ABG PH 7.25 pH Units (7.32-7.45); ABG PO2 310 mmHg (85-104); ABG TCO2 15 mEq/L (20-26); Blood Gas Modality ASSIST CONTROL; Blood Gas VT 500 cc
[2020-09-20] MEDS ORDERED: Sennosides 8.6 MG TABLET PO PRN (21:00)
[2020-09-20] MEDS ORDERED: MOM Conc 10 ML UD.LIQ PO PRN (21:00)
[2020-09-20] MEDS ORDERED: Insulin LISPRO 300 UNITS/3 ML VIAL SUBQ SCH (21:00)
[2020-09-20] MEDS ORDERED: Lactobacillus 1 EACH CAP.SPRINK PO SCH (21:00)
[2020-09-20] MEDS ORDERED: 0.9 % Sodium Chloride 250 ML ONE (21:11)
[2020-09-20 21:21] LABS: VBG Ionized Calcium 1.21 mmol/L (1.15-1.35)
[2020-09-20 21:48] LABS: Adenovirus Not Detected (Not Detect); Coronavirus 229E Not Detected (Not Detect); Coronavirus HKU1 Not Detected (Not Detect); Coronavirus NL63 Not Detected (Not Detect); Coronavirus OC43 Not Detected (Not Detect); SARS-CoV-2 Not Detected (Not Detect)
[2020-09-20 21:49] LABS: Bordetella Pertussis Not Detected (Not Detect); Chlamydophila pneumoniae Not Detected (Not Detect); Human Metapneumovirus Not Detected (Not Detect); Human Rhinovirus/Enterovirus Not Detected (Not Detect); Influenza A Subtype 2009 H1 Not Detected (Not Detect); Influenza B Not Detected (Not Detect); Mycoplasma pneumoniae Not Detected (Not Detect); Parainfluenza Virus 1 Not Detected (Not Detect); Parainfluenza Virus 2 Not Detected (Not Detect); Parainfluenza Virus 3 Not Detected (Not Detect); Parainfluenza Virus 4 Not Detected (Not Detect); Respiratory Syncytial Virus Not Detected (Not Detect)
[2020-09-20] MEDS: Lactobacillus 1 EACH CAP.SPRINK PO SCH (21:56)
[2020-09-20] MEDS: Chlorhexidine Rinse 15 ML MOUTHWASH MM SCH (21:57)
[2020-09-20] MEDS: Melatonin 3 MG TABLET PO SCH (22:06)
[2020-09-20] MEDS: Lactulose Oral Soln 20 GM/30 ML UDC GTUBE SCH ×2 (22:16→23:50)
[2020-09-20] MEDS ORDERED: Potassium Chloride 40 MEQ/200 ML BAG IVPB PRN (22:24)
[2020-09-21] MEDS ORDERED: CeFAZolin 2 GM/120 ML BAG IVPB SCH
[2020-09-21] MEDS: Artificial Tears SOLN 15 ML BOTTLE BOTH EYES SCH ×7 (00:44→23:23)
[2020-09-21] MEDS: Insulin LISPRO 300 UNITS/3 ML VIAL SUBQ SCH ×5 (00:45→23:33)
[2020-09-21] MEDS: Norepinephrine 4 MG/254 ML IV.SOLN IVC SCH (02:52)
[2020-09-21] MEDS: Piperacillin/Tazobactam 3.375 GM in 0.9 % Sodium Chloride Mini Bag 100 ML IVPB SCH ×3 (02:54→21:36)
[2020-09-21 04:20] LABS: ABG Base Excess -15 mEq/L (-2 to 3); ABG HCO3 12 mEq/L (21-27); ABG Oxygen Saturation 98 % (95-98); ABG PCO2 34 mmHg (35-45); ABG PH 7.17 pH Units (7.32-7.45); ABG PO2 130 mmHg (85-104); ABG TCO2 13 mEq/L (20-26); Blood Gas Modality ASSIST CONTROL; Blood Gas VT 500 cc
[2020-09-21 04:33] LABS: Basophils # 0.2 K/mcL (0.0-0.2); Basophils % 0.8 %; Eosinophils % 0.2 %; Hematocrit 44.7 % (37.5-50.1); Hemoglobin 13.4 g/dL (12.9-16.9); Immature Granulocytes % 5.1 % (0-4); Lymphocytes # 0.5 K/mcL (0.6-4.6); Lymphocytes % 2.3 %; Mean Corpuscular Hemoglobin 24.9 pg (28.0-33.3); Mean Corpuscular Volume 82.9 fL (83.0-100.0); Mean Platelet Volume 10.2 fL (9.4-12.4); Monocytes # 0.5 K/mcL (0.0-1.3); Monocytes % 2.3 %; Nucleated Red Blood Cells 0.3 /100 WBC (0); Platelet Count 288 K/mcL (140-400); Red Blood Count 5.39 M/mcL (4.19-5.50); Segmented Neutrophils % 89.3 %; White Blood Count 23.1 K/mcL (4.3-11.1)
[2020-09-21 04:34] LABS: Eosinophils # 0.1 K/mcL (0.0-0.6); Neutrophils # 20.6 K/mcL (1.6-8.9)
[2020-09-21 04:38] LABS: INR 1.6
[2020-09-21] MEDS: Ringers Solution, Lactated 1,000 ML IVC SCH (04:49)
[2020-09-21 05:04] LABS: BUN/Creatinine Ratio 19 (6-26); Blood Urea Nitrogen 45 mg/dL (6-20); Calcium 8.7 mg/dL (8.6-10.3); Carbon Dioxide 12 mEq/L (23-29); Chloride 110 mEq/L (98-107); Glucose 115 mg/dL (70-105); Magnesium 2.5 mg/dL (1.6-2.6); Osmolality,Calculated 294 (280-300); Potassium 4.3 mEq/L (3.5-5.1); Sodium 136 mEq/L (136-145); Troponin I 0.07 ng/mL (< 0.04); eGFR For African Americans 35 (> 60); eGFR For Non-African Americans 29 (> 60)
[2020-09-21 05:13] LABS: Platelet Estimate Normal (Normal)
[2020-09-21] MEDS ORDERED: Amiodarone Premix 150 MG/100 ML BAG IVPB ONE ×2 (05:13→05:31)
[2020-09-21] MEDS ORDERED: Amiodarone Premix 360 MG/200 ML BAG IVC ONE ×2 (05:14→05:31)
[2020-09-21] MEDS ORDERED: Phenylephrine 10 MG in 0.9 % Sodium Chloride 250 ML IVC SCH (06:15)
[2020-09-21] MEDS: Albumin Human 5% 12.5 GM/250 ML IV.SOLN IVC SCH ×2 (06:44→11:10)
[2020-09-21 07:01] LABS: Alanine Aminotransferase < 3 Units/L (7-52); Albumin 3.2 g/dL (3.5-5.7); Albumin/Globulin Ratio 1.3 (1.1-2.2); Alkaline Phosphatase 871 Units/L (34-104); Aspartate Amino Transferase 21 Units/L (13-39); Bilirubin,Direct 0.8 mg/dL (0.0-0.2); Bilirubin,Indirect 0.6 mg/dL (0.0-1.0); Bilirubin,Total 1.4 mg/dL (0.3-1.0); Globulin 2.4 g/dL (2.4-3.5); Total Protein 5.6 g/dL (6.4-8.9)
[2020-09-21] MEDS: Lactobacillus 1 EACH CAP.SPRINK PO SCH ×2 (08:10→21:17)
[2020-09-21] MEDS: Aspirin Enteric Coated 81 MG Tablet PO SCH (08:10)
[2020-09-21] MEDS: Magnesium Oxide 400 MG TABLET GTUBE SCH (08:11)
[2020-09-21] MEDS ORDERED: Perflutren Lipid Microsphere 1.3 ML in 0.9 % Sodium Chloride 8.7 ML IVP PRN (08:14)
[2020-09-21] MEDS: Chlorhexidine Rinse 15 ML MOUTHWASH MM SCH ×2 (08:20→21:35)
[2020-09-21] MEDS: PARoxetine 20 MG TABLET PO SCH (08:20)
[2020-09-21] MEDS: Pantoprazole 40 MG VIAL IVP SCH (08:20)
[2020-09-21] MEDS: Lactulose Oral Soln 20 GM/30 ML UDC GTUBE SCH ×2 (08:20→21:49)
[2020-09-21] MEDS ORDERED: BuPROPion XL (24 HR) 150 MG TABLET PO SCH (09:00)
[2020-09-21] MEDS ORDERED: Metoprolol XL (24 HR) Succ 25 MG TAB.ER.24H PO SCH (09:00)
[2020-09-21] MEDS ORDERED: Spironolactone 12.5 MG TABLET PO SCH (09:00)
[2020-09-21 10:15] LABS: Creatine Kinase 42 Units/L (30-223)
[2020-09-21] MEDS: Phenylephrine 50 MG in 0.9 % Sodium Chloride 250 ML IVC SCH ×2 (11:09→19:45)
[2020-09-21] MEDS: Vasopressin 40 UNIT in D5% in Water 100 ML IVC SCH (11:36)
[2020-09-21] MEDS: Amiodarone Premix 360 MG/200 ML BAG IVC SCH ×2 (11:36→22:42)
[2020-09-21] MEDS: FentaNYL (PF) 1,000 MCG/100 ML IV.SOLN IVC SCH (13:43)
[2020-09-21] MEDS: Albumin 25% 25gram/100mL 25 GM/100 ML IV.SOLN IVPB SCH ×3 (14:22→23:24)
[2020-09-21] MEDS: Furosemide 40 MG/4 ML VIAL IVP SCH ×3 (14:22→21:47)
[2020-09-21 17:38] LABS: INR 1.6; Prothrombin Time 18.5 Seconds (9.4-12.1)
[2020-09-21 17:41] LABS: Activated Partial Thrombo Time 36.9 Seconds (26.0-36.0)
[2020-09-21 17:52] LABS: Hematocrit 39.2 % (37.5-50.1)
[2020-09-21 17:54] LABS: Hemoglobin 11.6 g/dL (12.9-16.9)
[2020-09-21] MEDS ORDERED: Warfarin perPT PO SCH (18:00)
[2020-09-21] MEDS ORDERED: allopurinoL 300 MG TABLET PO SCH (18:00)
[2020-09-21] MEDS: Melatonin 3 MG TABLET PO SCH (21:21)
[2020-09-22] MEDS: Phenylephrine 50 MG in 0.9 % Sodium Chloride 250 ML IVC SCH ×2 (02:21→08:05)
[2020-09-22] MEDS: Artificial Tears SOLN 15 ML BOTTLE BOTH EYES SCH ×2 (03:36→08:56)
[2020-09-22] MEDS: Piperacillin/Tazobactam 3.375 GM in 0.9 % Sodium Chloride Mini Bag 100 ML IVPB SCH (03:41)
[2020-09-22 04:05] LABS: Basophils % 0.6 %; Hemoglobin 11.6 g/dL (12.9-16.9); Lymphocytes % 3.7 %; Nucleated Red Blood Cells 1.2 /100 WBC (0)
[2020-09-22 04:07] LABS: Eosinophils # 0.1 K/mcL (0.0-0.6); Eosinophils % 0.4 %; Hematocrit 38.6 % (37.5-50.1); Immature Granulocytes % 4.1 % (0-4); Lymphocytes # 0.9 K/mcL (0.6-4.6); Mean Corpuscular HGB Conc 30.1 g/dL (31.6-35.5); Mean Corpuscular Hemoglobin 25.7 pg (28.0-33.3); Mean Corpuscular Volume 85.4 fL (83.0-100.0); Mean Platelet Volume 11.7 fL (9.4-12.4); Monocytes # 1.8 K/mcL (0.0-1.3); Monocytes % 7.3 %; Neutrophils # 20.9 K/mcL (1.6-8.9); Platelet Count 267 K/mcL (140-400); Red Blood Count 4.52 M/mcL (4.19-5.50); Red Cell Distribution Width 21.1 % (11.5-14.5); Segmented Neutrophils % 83.9 %; White Blood Count 24.9 K/mcL (4.3-11.1)
[2020-09-22 04:09] LABS: Basophils # 0.2 K/mcL (0.0-0.2)
[2020-09-22 04:25] LABS: Calcium 8.7 mg/dL (8.6-10.3); Potassium 4.1 mEq/L (3.5-5.1)
[2020-09-22 04:44] LABS: Platelet Estimate Normal (Normal)
[2020-09-22] MEDS: Insulin LISPRO 300 UNITS/3 ML VIAL SUBQ SCH (05:18)
[2020-09-22 05:20] LABS: ABG Base Excess -13 mEq/L (-2 to 3); ABG HCO3 15 mEq/L (21-27); ABG Oxygen Saturation 98 % (95-98); ABG PCO2 43 mmHg (35-45); ABG PH 7.16 pH Units (7.32-7.45); ABG PO2 122 mmHg (85-104); ABG TCO2 17 mEq/L (20-26); Blood Gas Modality ASSIST CONTROL; Blood Gas VT 500 cc
[2020-09-22] MEDS: Chlorhexidine Rinse 15 ML MOUTHWASH MM SCH (08:54)
[2020-09-22] MEDS: Pantoprazole 40 MG VIAL IVP SCH (08:54)
[2020-09-22] MEDS: Furosemide 40 MG/4 ML VIAL IVP SCH ×2 (08:54→19:55)
[2020-09-22] MEDS: Aspirin Enteric Coated 81 MG Tablet PO SCH (08:56)
[2020-09-22] MEDS: Lactobacillus 1 EACH CAP.SPRINK PO SCH (08:56)
[2020-09-22] MEDS: Lactulose Oral Soln 20 GM/30 ML UDC GTUBE SCH (08:57)
[2020-09-22] MEDS: PARoxetine 20 MG TABLET PO SCH (08:57)
[2020-09-22] MEDS: Magnesium Oxide 400 MG TABLET GTUBE SCH (08:57)
[2020-09-22 09:07] VITALS: BP 76/53
[2020-09-22] MEDS ORDERED: Ipratropium/Albuterol Neb 3 ML IH PRN (15:39)
[2020-09-22] MEDS: FentaNYL (PF) 1,000 MCG/100 ML IV.SOLN IVC SCH (18:58)
[2020-09-22] MEDS: Melatonin 3 MG TABLET PO SCH (19:55)
[2020-09-22] MEDS: Atropine 1% Opth Drops 100 DROP/5 ML BOTTLE SL PRN (22:29)
[2020-09-23] MEDS: Atropine 1% Opth Drops 100 DROP/5 ML BOTTLE SL PRN ×4 (02:53→23:34)
[2020-09-23] MEDS: Furosemide 40 MG/4 ML VIAL IVP SCH ×2 (08:32→11:02)
[2020-09-23] MEDS: Pantoprazole 40 MG VIAL IVP SCH ×2 (08:32→11:00)
[2020-09-23] MEDS ORDERED: Haloperidol Lactate 5 MG/ML VIAL IVP PRN (10:03)
[2020-09-23] MEDS ORDERED: Scopolamine Patch 1.5 MG PATCH.TD72 TD SCH (10:15)
[2020-09-23] MEDS: *HR* LORazepam 2 MG/ML VIAL IVP PRN ×2 (14:05→23:33)
[2020-09-23] MEDS: Melatonin 3 MG TABLET PO SCH (23:29)
[2020-09-24] MEDS: *HR* LORazepam 2 MG/ML VIAL IVP PRN (03:59)
[2020-09-24] MEDS: Atropine 1% Opth Drops 100 DROP/5 ML BOTTLE SL PRN (04:00)
[2020-09-24] MEDS: FentaNYL (PF) 1,000 MCG/100 ML IV.SOLN IVC SCH (04:37)
[2020-09-24] MEDS ORDERED: Acetaminophen 650 MG RECTAL SUPP RC PRN (08:34)
== END 2020-09-24 15:15 | disposition expired | DRG 710 ==
LOC: ICNU → SUATTDRO 12:59 → 2NNU 09-15 06:51 → 3ANU 09-17 11:04 → SUATTDRO 09-17 14:25 → ICNU 09-20 20:16 → 2ANU 09-22 19:01
PROVIDERS: ADMIT Student in an Organized Health Care Education/Training Program; ATTEND Pharmacist
PROC: IRFLUID (2020-09-18 10:30)